=== PATIENT | female | born 1930 | race Caucasian/White ===

== ENCOUNTER 2018-04-29 12:29 | Emergency (ER) | payer MEDICARE ==
--- NOTE | 2018-04-29 14:53 | ED ---
Back Pain - HPI Summary HPI Summary: An 87 y/o female accompanied by family presents to [facility] with a chief complaint of right sided back pain for 1.5 weeks after she fell. At triage she rated her pain as a 5/10 in severity. She claims that she can walk. She denies taking any medication for her pain. - History of Current Complaint Chief Complaint: EDHipPelvisInjury Stated Complaint: PAIN IN RIGHT HIP PER Time Seen by Provider: 04/29/18 14:39 Hx Obtained From: Patient Onset/Duration: Sudden Onset, Lasting Weeks, Still Present Onset/Duration: Started Weeks Ago, Still Present Timing: Constant, Lasting Weeks Back Pain Location: Is Diffuse - right sided Severity Initially: Moderate Severity Currently: Moderate Pain Intensity: 5 Pain Scale Used: 0-10 Numeric Character: Unable to Describe Aggravating Symptom(s): Nothing Alleviating Symptom(s): Nothing Associated Signs And Symptoms: Negative: Fever - Allergies/Home Medications Allergies/Adverse Reactions: Allergies Allergy/AdvReac Type Severity Reaction Status Date / Time MS Ciprofloxacin Allergy Unknown GI Upset Verified 04/29/18 12:39 MS Sulfa Drugs Allergy Unknown Hives Verified 04/29/18 12:39 MS Simvastatin Allergy GI Upset Verified 04/29/18 12:39 PMH/Surg Hx/FS Hx/Imm Hx History: Reports: Other Problems/Disorders - Urine infections Opthamlomology History: Reports: Hx Contacts or Glasses Infectious Disease History: No Infectious Disease History: Denies: Traveled Outside the [place] in Last 30 Days - Family History Known Family History: Negative: Blood Disorder - Social History Lives: With Family Alcohol Use: None Substance Use Type: Reports: None Smoking Status (MU): Unknown if Ever Smoked Review of Systems Negative: Fever Positive: Myalgia - back pain All Other Systems Reviewed And Are Negative: Yes Physical Exam - Summary Physical Exam Summary: Appearance: The patient is well-nourished in no acute distress and in no acute pain. Skin: The skin is warm and dry and skin color reflects adequate perfusion. HEENT: The head is normocephalic and atraumatic. The pupils are equal and reactive. The conjunctivae are clear and without drainage. Nares are patent and without drainage. Mouth reveals moist mucous membranes and the throat is without erythema and exudate. The external ears are intact. The ear canals are patent and without drainage. The tympanic membranes are intact. Neck: The neck is supple with full range of motion and non-tender. There are no carotid bruits. There is no neck vein distension. Respiratory: Chest is non-tender. Lungs are clear to auscultation and breath sounds are symmetrical and equal. Cardiovascular: Heart is regular rate and rhythm. There is no murmur or rub auscultated. There is no peripheral edema and pulses are symmetrical and equal. Abdomen: The abdomen is soft and non-tender. There are normal bowel sounds heard in all four quadrants and there is no organomegaly palpated. Musculoskeletal: TTender in right sciatic area, Straight leg raise about 80 degrees, Non-tender over hip Neurovascularly intact. Extremities are non-tender with full range of motion. There is good capillary refill. There is no peripheral edema or calf tenderness elicited. Neurological: Patient is alert and oriented to person, place and time. The patient has symmetrical motor strength in all four extremities. Cranial nerves are grossly intact. Deep tendon reflexes are symmetrical and equal in all four extremities. Psychiatric: The patient has an appropriate affect and does not exhibit any anxiety or depression. Triage Information Reviewed: Yes Vital Signs On Initial Exam: Initial Vitals Temp Pulse Resp BP Pulse Ox 97.2 F 94 18 131/71 97 04/29/18 12:33 04/29/18 12:33 04/29/18 12:33 04/29/18 12:33 04/29/18 12:33 Vital Signs Reviewed: Yes Diagnostics - Vital Signs Vital Signs Temp Pulse Resp BP Pulse Ox 04/29/18 12:33 97.2 F 94 18 131/71 97 - Laboratory Lab Statement: Any lab studies that have been ordered have been reviewed, and results considered in the medical decision making process. - CT lumbar spine CT Interpretation Completed By: Radiologist Summary of CT Findings: 1. SCOLIOSIS. 2. ATHEROSCLEROSIS. 3. DEGENERATIVE DISC DISEASE AND OSTEOARTHRITIS OF THE CERVICAL SPINE DESCRIBED ABOVE. ED physician has reviewed this imaging report. Re-Evaluation - Re-Evaluation First Eval Re-Evaluation Time: 16:05 Change: Improved Comment: Discussed results. Patient is feeling better and ready for discharge. Back Pain Course/Dx - Course Course Of Treatment: Ms. Rivas presented with low back pain and sciatic tenderness several days after a fall. She was not in acute distress and hadn't taken anything for pain at this point except Tylenol. She was given ibuprofen here and a CT was obtained of her low back which showed significant degenerative disc disease. I recommended continuing ibuprofen and tramadol as a painkiller and muscle relaxants. She should expect improvement in a few days and follow-up with her PCP next week. - Diagnoses Provider Diagnoses: Sciatica Discharge - Sign-Out/Discharge Documenting (check all that apply): Patient Departure - DC Patient Received Moderate/Deep Sedation with Procedure: No - Discharge Plan Condition: Stable Disposition: HOME Prescriptions: traMADol TAB* [Ultram*] 25 mg PO Q6HR PRN #20 tab MDD 4 PRN Reason: Pain Patient Education Materials: Sciatica (ED) Referrals: Justin Qiules MD [Primary Care Provider] - (2-3 days) Additional Instructions: Recommend Ibuprofen Return to the ED if you experience any new or worsening symptoms. - Billing Disposition and Condition Condition: STABLE Disposition: Home - Attestation Statements Document Initiated by Scribe: Yes Documenting Scribe: Johnson Turner Provider For Whom Lawanda is Documenting (Include Credential): Sheldon Phillips MD Scribe Attestation: IJohnson, scribed for Sheldon Phillips MD on 04/29/18 at 1826. Scribe Documentation Reviewed: Yes Provider Attestation: The documentation as recorded by the Johnson kaur accurately reflects the service I personally performed and the decisions made by me, Sheldon Phillips MD Status of Scribe Document: Viewed
[2018-04-29] MEDS ORDERED: Ibuprofen TAB* 600 MG PO ONE (15:28)
[2018-04-29 17:00] VITALS: BP 151/72
== END 2018-04-29 16:40 | disposition home or self-care (01) ==
LOC: ED 12:29
DX: M54.30 Sciatica, unspecified side (principal); R50.9 Fever, unspecified; M54.9 Dorsalgia, unspecified; M50.30 Other cervical disc degeneration, unspecified cervical region; M41.9 Scoliosis, unspecified
CPT/HCPCS: 72131; 99282; A9270-GY

== ENCOUNTER 2019-01-11 08:11 | Inpatient (IN) | payer MEDICARE ==
[2019-01-11] MEDS ORDERED: NS 0.9% 1000 ML** 1,000 ML IV ONE ×4 (08:19→16:27)
--- NOTE | 2019-01-11 08:19 | ED ---
Neck Pain - HPI Summary HPI Summary: The patient is an 88 y/o F arriving by ambulance with a chief complaint of posterior neck pain onset this morning after a mechanical. Per EMS, the patient s called around 0715 this morning after she had fallen. She is now suffering from posterior neck pain and denies any headache, dizziness, chest pain, or shortness of breath. She rates her pain 4/10 in severity. She does not remember why she fell or if she had loss of consciousness. EMS reports blood glucose of 441, blood pressure of 97/61 mmHg, and O2 sats in the 95-100% range on room air. She has chronic neck problems. PMHx: DM (Metformtin), HLD, HTN. Current every day smoker, no EtOH, no substance use. Medications reviewed. Allergies noted. History is limited as patient is a poor historian and unable to recall events from todays event. - History of Current Complaint Stated Complaint: FALL PER EMS Hx Obtained From: Patient - unable to provide full history, EMS Hx From Patient Unobtainable Due To: Other - Level 5 Caveat as patient is a poor historian Onset/Duration Of Injury/Symptoms: Minutes - around 0715 (per EMS) Mechanism Of Injury: Other - fall Timing: Lasting Minutes Onset/Duration: Still Present Severity Currently: Moderate Pain Intensity: 4 Pain Scale Used: 0-10 Numeric Location: Discrete At: - posterior neck Associated Signs & Symptoms: Negative: Headache Related History: Previous Neck Injury - Allergies/Home Medications Allergies/Adverse Reactions: Allergies Allergy/AdvReac Type Severity Reaction Status Date / Time ciprofloxacin [From Cipro] Allergy GI Upset Verified 01/11/19 08:29 simvastatin Allergy GI Upset Verified 01/11/19 08:29 Sulfa (Sulfonamide Allergy Hives Verified 01/11/19 08:29 Antibiotics) Home Medications: Home Medications Acetaminop/Codeine 30 MG TAB* [Tylenol/Codeine 30 MG TAB*] 1 tab PO Q4H PRN MDD 6 tabs 01/11/19 [History Confirmed 01/11/19] Diazepam TAB(*) [Valium TAB(*)] 5 mg PO BID PRN MDD 10mg 01/11/19 [History Confirmed 01/11/19] Diphenoxylat/Atrop 2.5-0.025M* [Lomotil TAB*] 1 tab PO QID PRN 01/11/19 [ History Confirmed 01/11/19] Glyburide/Metformin HCl [Glyburide-Metformin 5-500 mg] 1 each PO BID 01/11/19 [ History Confirmed 01/11/19] Imipramine (NF) 50 mg PO BEDTIME 01/11/19 [History Confirmed 01/11/19] Lisinopril TAB* [Prinivil TAB*] 40 mg PO DAILY 01/11/19 [History Confirmed 01/11] Metoprolol Succinate XL TAB* [Toprol XL TAB*] 100 mg PO DAILY 01/11/19 [History Confirmed 01/11/19] Pravastatin (NF) [Pravachol (NF)] 40 mg PO QPM 01/11/19 [History Confirmed 01/11] PMH/Surg Hx/FS Hx/Imm Hx Endocrine/Hematology History: Reports: Hx Diabetes Cardiovascular History: Reports: Hx Hypercholesterolemia, Hx Hypertension History: Reports: Other Problems/Disorders - Urine infections Musculoskeletal History: Reports: Other Musculoskeletal History - neck problems Sensory History: Reports: Hx Contacts or Glasses Opthamlomology History: Reports: Hx Contacts or Glasses - Surgical History Surgical History: Unable to Obtain/Confirm Surgery Procedure, Year, and Place: patient is a poor historian Infectious Disease History: Unable to Obtain/Confirm - patient is a poor historian - Family History Known Family History: Positive: Unknown - patient is a poor historian Negative: Blood Disorder - Social History Alcohol Use: None Substance Use Type: Reports: None Hx Tobacco Use: Yes Smoking Status (MU): Current Every Day Smoker Type: Cigarettes Review of Systems Negative: Chest Pain Negative: Shortness Of Breath Positive: Other - posterior neck pain Neurological: Other - unsure of LOC; Negative: dizziness Negative: Headache All Other Systems Reviewed And Are Negative: No - Comments Additional Review of Systems Comments: Level 5 Caveat secondary to patient being a poor historian Physical Exam - Summary Physical Exam Summary: VITAL SIGNS: Reviewed. GENERAL: Patient is a well-developed and fragile elderly female who is lying comfortable in the stretcher. Patient is not in any acute respiratory distress. She appears unkempt. She is a poor historian. HEAD AND FACE: No signs of trauma. No ecchymosis, hematomas or skull depressions. No sinus tenderness. EYES: PERRLA, EOMI x 2, No injected conjunctiva, no nystagmus. EARS: Hearing grossly intact. Ear canals and tympanic membranes are within normal limits. MOUTH: Oropharynx within normal limits. NECK: Supple, trachea is midline, no adenopathy, no JVD, no carotid bruit. Some paraspinal tenderness in the C-spine. Neck with full ROM. CHEST: Symmetric, no tenderness at palpation. LUNGS: Some crackles in both lungs. No wheezing. CVS: Regular rate and rhythm, S1 and S2 present, no murmurs or gallops appreciated. ABDOMEN: Soft, non-tender. No signs of distention. No rebound, no guarding, and no masses palpated. Bowel sounds are normal. EXTREMITIES: FROM in all major joints, no edema, no cyanosis or clubbing. NEURO: Alert and oriented x 3. No acute neurological deficits. Speech is normal and follows commands. SKIN: Dry and warm. GCS: 15. Triage Information Reviewed: Yes Vital Signs Reviewed: Yes Completion Of Physical Exam Limited Due To: Level 5 - patient is a poor historian - Nidhi Coma Scale Best Eye Response: 4 - Spontaneous Best Motor Response: 6 - Obeys Commands Best Verbal Response: 5 - Oriented Coma Scale Total: 15 Procedures - Sedation Patient Received Moderate/Deep Sedation with Procedure: No Diagnostics - Laboratory Result Diagrams: 01/12/19 05:11 01/12/19 05:11 Lab Statement: Any lab studies that have been ordered have been reviewed, and results considered in the medical decision making process. - Radiology Chest X-Ray Radiology Interpretation Completed By: Radiologist Summary of Radiographic Findings: Impression: No active cardiopulmonary disease is noted. ED physician has reviewed this report. - CT Brain CT CT Interpretation Completed By: Radiologist Summary of CT Findings: Impression: 1. No evidence for acute intracranial abnormality. 2. Old right lacunar infarct. ED physician has reviewed this report. Cervical Spine CT CT Interpretation Completed By: Radiologist Summary of CT Findings: Impression: 1. No evidence for fracture. 2. Moderate cervical spondylosis as described. 3. Multiple thyroid nodules. Recommend a follow-up outpatient thyroid ultrasound for further evaluation. ED physician has reviewed this report. - EKG 1017 Cardiac Rate: NL - 88 BPM EKG Rhythm: Sinus Rhythm Summary of EKG Findings: EKG at 1017 reveals normal sinus rhythm at 88 BPM. Q waves in III and aVF. T-wave inversions V4-V6. No ST elevations. ED physician has reviewed and interpreted this EKG. Neck Course/Dx - Course Assessment/Plan: This patient is an 88-year-old female who presents to the emergency department via ambulance with a chief complaint of mechanical fall. However, she does not remember how she fell. She is complaining of slight neck pain. She is not consistent oriented. PMH: 1. Hypertension, 2. Dyslipidemia, 3. Diabetes, 4. Vertigo, 5. Anxiety, 6. Constipation. Blood test results: CBC shows WBCs of 14.1, hemoglobin of 13.5, hematocrit of 43, platelets of 179, absolute neutrophils of 12.5. CMP without any significant abnormality except for sodium of 134, carbon dioxide of 12, anion gap of 12, BUN of 42, creatinine of 2.29, glucose of 483, lactic acid of 2.7, calcium of 8.4, and magnesium of 1.6. Urinalysis negative for UTI. Chest x-ray impression: No active cardiopulmonary disease. Cervical spine CT impression: No evidence for fracture. Moderate cervical spondylolysis. Multiple thyroid nodules. Recommend a follow-up outpatient. Head CT impression: No evidence for acute intracranial abnormality. Old right lacunar infarct. In the ED course, the patient was given IV fluids for dehydration and hyperglycemia. The patient also was given insulin for hyperglycemia. The patient is still slightly hypotensive so I will continue IVF. No source of infection however since I will give Rocephin as broad- spectrum antibiotics. ABG: PH 7.28, PCO2 23, pO2 78, and O2 sat 97.7. I discussed my physical exam and test results with Dr. Anne from the hospitalist services, and she agrees to admit the patient to his services. - Diagnoses Provider Diagnoses: AMS (altered mental status), Hyperglycemia, Acute renal failure, Acidosis, Leukocytosis, Hypomagnesemia - Physician Notifications Discussed Care Of Patient With: Latasha Anne - hospitalist Time Discussed With Above Provider: 14:00 Instructed by Provider To: Other - I spoke with Dr. Anne concerning the patient's case, and she accepts her for admission. Discharge ED - Sign-Out/Discharge Documenting (check all that apply): Patient Departure - Patient accepted for admission by Dr. Anne. - Discharge Plan Condition: Stable Disposition: ADMITTED TO [facility] - Billing Disposition and Condition Condition: STABLE Disposition: Home - Attestation Statements Document Initiated by Scribe: Yes Documenting Scribe: Marielena Lyle Provider For Whom Lawanda is Documenting (Include Credential): Dr. Tobias Chicas MD Scribe Attestation: IMarielena scribed for Dr. Tobias Chicas MD on 01/12/19 at 1840. Scribe Documentation Reviewed: Yes Provider Attestation: The documentation as recorded by the Marielena kaur accurately reflects the service I personally performed and the decisions made by me, Dr. Tobias Chicas MD Status of Scribe Document: Viewed
[2019-01-11 08:59] LABS: Hematocrit 43 % (35-47); Hemoglobin 13.5 g/dL (12.0-16.0); Mean Corpuscular HGB Conc 32 g/dL (31-36); Mean Corpuscular Hemoglobin 31 pg (27-31); Mean Corpuscular Volume 98 fL (80-97); Mean Platelet Volume 8.1 fL (7.4-10.4); Platelet Count 179 10^3/uL (150-450); Red Blood Count 4.34 10^6 /uL (3.70-4.87); Red Cell Distribution Width 14 % (10-15); White Blood Count 14.1 10^3/uL (3.5-10.8)
[2019-01-11 09:06] LABS: INR 1.03 (0.82-1.09)
[2019-01-11 09:17] LABS: ALT 14 U/L (7-52); AST 14 U/L (13-39); Albumin 3.3 g/dL (3.2-5.2); Albumin/Globulin Ratio 1.4 (1-3); Alkaline Phosphatase 53 U/L (34-104); BUN/Creatinine Ratio 18.3 (8-20); Blood Urea Nitrogen 42 mg/dL (6-24); Calcium 8.4 mg/dL (8.6-10.3); Chloride 110 mmol/L (101-111); Creatine Kinase 42 U/L (10-223); EGFR African American 24.4 (>60); EGFR Non-African American 20.2 (>60); Globulin 2.4 g/dL (2-4); Glucose 483 mg/dL (70-100); Magnesium 1.6 mg/dL (1.9-2.7); Potassium 4.7 mmol/L (3.5-5.0); Sodium 134 mmol/L (135-145); Total Protein 5.7 g/dL (6.4-8.9)
[2019-01-11 09:18] LABS: ABS Lymphocytes 0.3 10^3/ul (1.0-4.8); ABS Monocytes 1.2 10^3/ul (0-0.8); ABS Neutrophils 12.5 10^3/ul (1.5-7.7); Eosinophil % 0.2 %; Nucleated Red Blood Cells % 0.2
[2019-01-11 09:21] LABS: Troponin I 0.01 ng/mL (<0.03)
[2019-01-11 09:22] LABS: Alcohol < 10 mg/dL (<10); Anion Gap 12 mmol/L (2-11); CO2 Carbon Dioxide 12 mmol/L (22-32); Salicylate < 2.50 mg/dL (<30)
[2019-01-11 09:35] LABS: TSH (Thyroid Stimulating Horm) 0.24 mcIU/mL (0.34-5.60)
[2019-01-11 09:43] LABS: Acetaminophen < 15 mcg/mL
[2019-01-11 09:48] LABS: Urine Appearance Cloudy; Urine Bilirubin Negative (Negative); Urine Blood Negative (Negative); Urine Color Yellow; Urine Glucose 1+(50 mg/dL) (Negative); Urine Ketones Negative (Negative); Urine Nitrite Negative (Negative); Urine Protein 2+(100 mg/dL) (Negative); Urine Specific Gravity 1.013 (1.010-1.030); Urine Urobilinogen Negative (Negative)
[2019-01-11] MEDS ORDERED: Magnesium Sulfate 1 GM IV* 1 GM/100 ML BAG IV ONE (09:49)
[2019-01-11 09:53] LABS: Urine Bacteria Absent (Absent); Urine Red Blood Cell Trace(0-2/hpf) (Absent); Urine Squamous Epithelial Cell Present (Absent); Urine White Blood Cell Trace(0-5/hpf) (Absent)
[2019-01-11] MEDS ORDERED: Insulin REGULAR(*) 1 UNITS UNIT IV PUSH ONE ×2 (10:18→11:56)
[2019-01-11] MEDS ORDERED: cefTRIAXone(*) 1 GM in NS 0.9% 50 ML* 50 ML IVPB ONE (12:31)
[2019-01-11 13:31] LABS: Albumin 2.8 g/dL (3.2-5.2); Calcium 7.5 mg/dL (8.6-10.3); Potassium 3.9 mmol/L (3.5-5.0); Total Bilirubin 0.4 mg/dL (0.2-1.0)
[2019-01-11 13:37] LABS: Albumin/Globulin Ratio 1.2 (1-3); BUN/Creatinine Ratio 19.9 (8-20); EGFR African American 27.6 (>60); EGFR Non-African American 22.8 (>60); Globulin 2.3 g/dL (2-4); Total Protein 5.1 g/dL (6.4-8.9)
[2019-01-11 15:55] LABS: Calcium 7.7 mg/dL (8.6-10.3); Magnesium 1.9 mg/dL (1.9-2.7); Potassium 4.3 mmol/L (3.5-5.0)
[2019-01-11 16:00] LABS: EGFR African American 29.4 (>60); EGFR Non-African American 24.3 (>60)
[2019-01-11] MEDS ORDERED: Meclizine TAB* 12.5 MG PO PRN (16:25)
[2019-01-11] MEDS ORDERED: Diphenoxylat/Atrop 2.5-0.025M* 1 TAB PO PRN (16:25)
[2019-01-11] MEDS ORDERED: Acetaminophen / Codeine* #3 (300 MG/30 MG) TAB PO PRN (16:25)
[2019-01-11] MEDS ORDERED: Diazepam TAB(*) 5 MG PO PRN (16:25)
[2019-01-11] MEDS ORDERED: Dextrose 50% VIAL 50 ml IV PUSH PRN (16:31)
[2019-01-11 17:14] LABS: Free T4 0.84 ng/dL (0.61-1.12)
[2019-01-11] MEDS: Albuterol/Ipratropium NEB.SOL* Albuterol 2.5 MG/Ipratropium 0.5 MG 3 ML INH SCH ×2 (19:10→23:05)
--- NOTE | 2019-01-11 20:04 | HP ---
CC: Justin Quiles MD * HISTORY AND PHYSICAL: DATE OF ADMISSION: 01/11/19 PRIMARY CARE PROVIDER: Justin Quiles MD. ATTENDING PHYSICIAN: Latasha Anne MD * (dictated by VANDANA Franklin). CHIEF COMPLAINT: 1. Fall. 2. Neck pain. HISTORY OF PRESENT ILLNESS: Ms. Rivas is an 88-year-old female with past medical history of hypertension, hyperlipidemia, diabetes mellitus and vertigo, who presented to the ER today after sustaining a mechanical fall that resulted in neck pain. She was seen in the ER accompanied by her and niece. She is mostly unable to recall any of the events that occurred and does not know why she is in the hospital. Her states that she was getting up from the couch going to the bathroom and she fell in the bathroom. He states that she "slipped." He states that she typically walks with a cane or walker and that she walks infrequently. He states that she spends most of her time lying down and gets up only to use the bathroom or eat. When she walks, she has a shuffling gait. The patient again does not remember the fall. She denies pain in the neck. She complains of occasional dizziness, lightheadedness and a mild headache. She also complains of blurred vision and notes that she just had LASIK surgery on both eyes within the last 2 weeks. When asked question, she looks to her for answers. For instance, I asked the patient if she had cough or fever and she looks to her and she states "I don't know. Have I been coughing recently?" Her states that she has not had a cough recently. He does note that she has had increased frequency of urination and has complained of mild dysuria although the patient denies dysuria. The patient complains of diarrhea and notes that she has had this for "years." She notes that she has had diarrhea for the last 3 days recently and notes that these have been bloody, loose, watery bowel movements. She does eat and drink although she feels she does not drink enough fluids. In the ER, the patient received a full workup. Laboratory data revealed a leukocytosis. CMP revealed an anion gap that resolved with IV fluids. Her creatinine was elevated and slowly decreased to 1.95 with IV fluids. She had a lactic acidosis of 3.7 at admission. She was given 3 L of IV fluids, which decreased her lactic acidosis to 2.3. She had a magnesium of 1.6 and was given 1 g of magnesium. TSH was low at 0.24. The patient was also noted to have a glucose of 483. She was given 8 units insulin IV piggyback x2 as well as again 3 L of normal saline. Her current glucose is 308. She was given ceftriaxone 1 g in the ER. Hospitalist team was asked to evaluate the patient for admission. PAST MEDICAL HISTORY: 1. Hypertension. 2. Hyperlipidemia. 3. Diabetes mellitus. 4. Vertigo. 5. Anxiety. PAST SURGICAL HISTORY: Breast lumpectomy. HOME MEDICATIONS: 1. Acetaminophen/codeine 30 mg 1 tab p.o. q.4 hours p.r.n., MDD 6 tabs. 2. Amlodipine 10 mg p.o. daily. 3. Diazepam 5 mg p.o. b.i.d. p.r.n., MDD 10. 4. Lomotil 1 tab p.o. q.i.d. p.r.n. diarrhea. 5. Glyburide/metformin 5/500 one tab p.o. b.i.d. 6. Imipramine 50 mg p.o. at bedtime. 7. Lisinopril 40 mg p.o. daily. 8. Meclizine 25 mg p.o. t.i.d. p.r.n. vertigo. 9. Metoprolol succinate XL 100 mg p.o. daily. 10. Pravastatin 40 mg p.o. at bedtime. DRUG ALLERGIES: CIPRO, GI upset. SIMVASTATIN, GI upset. SULFA, hives. FAMILY HISTORY: The patient had 2 brothers with NC, 1 sister with diabetes mellitus. Father had diabetes mellitus. Mother was healthy. She does not know anything about her grandparents. She denies history of CVA or cancer. SOCIAL HISTORY: The patient has smoked one-half to one pack of cigarettes per day for the last approximately 70 years, she continues to smoke. She does not use alcohol, she quit 30 years ago. 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 She lives with her . They have no children. In the event that she is unable to make her own medical decision, she has appointed her niece and healthcare proxy, Renee Perry to be her surrogate decision maker. REVIEW OF SYSTEMS: A 14-point review of systems has been performed and all the pertinent positives and negatives are in the HPI. All other systems are negative. PHYSICAL EXAMINATION GENERAL: Ms. Rivas is a well-developed, well-nourished, overweight, white woman , who was sitting up in bed. She appears mildly unkempt. There is a malodorous smell in the room. She is breathing comfortably on room air and appears to be in no acute distress. VITAL SIGNS: Temperature 96.9 temporal, heart rate 90, respiratory rate 18, oxygen saturation 95% on room air, blood pressure 115/61. HEENT: PERRL. EOMI. Nonicteric sclerae. Hearing: The patient is hard of hearing. Oral: She has poor dentition. Oral mucous membranes are very dry. Tongue is at midline. There are no lesions in the posterior pharynx. The palate elevates symmetrically. NECK: Nontender to palpation with full range of motion. Thyroid is not palpable. PULMONARY: Symmetrical chest expansion without use of accessory muscles. There is diffuse end expiratory wheezing throughout bilateral lung webster. No rhonchi or rales. CARDIOVASCULAR: Regular rate and rhythm with S1, S2 present without murmurs, rubs, clicks, or gallops. There is no JVD or peripheral edema. ABDOMEN: Flat. Bowel sounds in all quadrants, soft, nontender to palpation. MUSCULOSKELETAL: Full range of motion without pain or deformities. NEURO: The patient is awake. She is alert and oriented to self and location. Does not know date. Muscle strength 5/5 bilaterally in the upper and lower extremities. Full range of motion without pain or deformities. DIAGNOSTIC STUDIES/LAB DATA: WBCs 14.1. Chloride 113, carbon dioxide 13, BUN 41, creatinine 1.95, BUN/creatinine 21, glucose 308, lactic acid 3.7 to 2.3, TSH 0.24, ammonia 26. Stool testing negative for C. diff, positive for lactoferrin. E. coli culture and Shiga toxin pending. 1. Chest x-ray. Impression: No active cardiopulmonary disease is noted. 2. CT brain without. Impression: No evidence for acute intracranial abnormality. Old right lacunar infarct. 3. CT C-spine. Impression: No evidence for fracture. Moderate cervical spondylosis as described. Multiple thyroid nodules. Recommend a followup outpatient thyroid ultrasound for further evaluation. ASSESSMENT AND PLAN: Ms. Rivas is an 88-year-old female with past medical history of hypertension, hyperlipidemia, diabetes, and vertigo who presented to the ER after a fall with complaints of neck pain and was found to have a negative CT of the head and neck and resolution of neck pain. Meanwhile, she was noted to have diffuse wheezing on pulmonary exam, a lactic acidosis, reported hematochezia and diarrhea, which was sent for testing, leukocytosis, and hyperglycemia. The patient will be admitted for: 1. Fall. The patient presents status post mechanical fall with neck pain, which has since resolved. CT of the head and neck were without acute abnormality. Her family reports a baseline of shuffling gait and use of cane or walker. She appears to be unsteady at baseline and appears to have some deconditioning due to decreased activity. PT and OT have been ordered to evaluate the patient's ambulation. 2. Probable chronic obstructive pulmonary disease exacerbation. The patient has no history of chronic obstructive pulmonary disease, but does have approximately 70- pack year history of tobacco abuse. She continues to smoke now. She will be started on DuoNeb. She will also be started on IV methylprednisolone. She would benefit from outpatient workup for chronic obstructive pulmonary disease. 3. Lactic acidosis. The patient presents with a lactic acidosis that does not appear to be related to infection. Her urinalysis is clear although she does have some mild dysuria and increased frequency. There is no noted cardiopulmonary disease on chest x-ray. She does have diarrhea, which she reports she has had for years and she denies abdominal pain, nausea, and vomiting. I suspect that her lactic acidosis is related to hyperglycemia versus chronic obstructive pulmonary disease exacerbation. She has 3 L of IV fluid, and her lactic acid has decreased from 3.7 to 2.3. She will receive another 1 L bolus of fluid with repeat lactic acid. She will also be placed on maintenance fluids. We will continue to monitor for signs and symptoms of infection as this cannot be excluded due to the patient being a poor historian. 4. Leukocytosis. The patient has leukocytosis. Her niece who is at bedside and is the patient's healthcare proxy and brings her to her appointments, reports that this is "normal" for her and that she always has some leukocytosis although she is unable to give a numeric value. She does not appear to have an infection. UA is negative. Chest x-ray is negative. She does report diarrhea , which is chronic for her. She denies abdominal pain, nausea and vomiting. We will request records for recent lab values and medical records to further evaluate this. 5. Diabetes mellitus. The patient is on glyburide/metformin 5/500 b.i.d. She presents to the ER with a glucose of 438. Judging by this, it appears her diabetes is uncontrolled, but we will order a hemoglobin A1c to further evaluate that. The patient will be placed on lispro sliding scale with fingersticks a.c. She would benefit from tighter glycemic control and may require additional medications or even insulin. 6. Elevated creatinine. The patient has creatinine that has decreased with administration of IV fluids. It is unclear if she has acute kidney injury on chronic kidney injury or if this is simply acute kidney injury due to dehydration likely from diarrhea. We will continue to hydrate the patient and request records from Dr. Quiles on recent lab values. 7. Low TSH with thyroid nodules. The patient's TSH was low at 0.[address] of the neck reveals thyroid nodules. Recommendations are for an ultrasound of the thyroid. We will order a free T4 to evaluate urgent need for thyroid ultrasound. If free T4 is within normal limits, this study is likely non urgent and it could be done outpatient. 8. Hypertension. Continue amlodipine, lisinopril, and metoprolol. 9. Hyperlipidemia. Continue statin. 10. Vertigo. Continue meclizine. 11. Anxiety. Continue diazepam. 12. Tobacco abuse. The patient has a 70-year tobacco history. We will order a patch. 13. DVT prophylaxis. According to DVT Risk Assessment, the patient scores 4, placing her at high risk. She will be started on heparin. 14. Code status: Currently, the patient does not appear to be competent to make decisions about her code status. With that being said, she will be full code for the time being. Her niece states that she has paperwork regarding the patient's wishes and will bring this with her at her next visit. TIME SPENT: Approximately 70 minutes was spent on this admission, greater than half that time was spent [id number] with the patient and her family members, obtaining history, performing physical, and reviewing the plan of care. The case has been reviewed with my attending Dr. Anne, who is in agreement with the plan of care. LYLE MANCILLA, VANDANA [id number]/[facility] #: [id number] MICHEAL
[2019-01-11] MEDS: NS 0.9% 1000 ML** 1,000 ML IV SCH (20:21)
[2019-01-11] MEDS: CMCS:Imipramine (NF) 25 MG TAB PO SCH (20:23)
[2019-01-11] MEDS: methylPREDNISolone 125 MG* 2 ML VIAL IV SCH (20:23)
[2019-01-11] MEDS: Atorvastatin* 10 MG TAB PO SCH (20:24)
[2019-01-11] MEDS: Heparin VIAL(*) 5000 UNITS/ML VIAL (FIVE THOUSAND) SUBCUT SCH (20:25)
[2019-01-11] MEDS ORDERED: Albuterol/Ipratropium NEB.SOL* Albuterol 2.5 MG/Ipratropium 0.5 MG 3 ML INH PRN (23:05)
[2019-01-12] MEDS: methylPREDNISolone 125 MG* 2 ML VIAL IV SCH ×3 (05:25→22:39)
[2019-01-12] MEDS: Heparin VIAL(*) 5000 UNITS/ML VIAL (FIVE THOUSAND) SUBCUT SCH ×3 (05:25→22:35)
[2019-01-12 05:52] LABS: ABS Lymphocytes 0.6 10^3/ul (1.0-4.8); ABS Monocytes 0.3 10^3/ul (0-0.8); ABS Neutrophils 12.9 10^3/ul (1.5-7.7); Hematocrit 33 % (35-47); Hemoglobin 10.8 g/dL (12.0-16.0); Lymphocyte % 4.1 %; Mean Corpuscular HGB Conc 33 g/dL (31-36); Mean Corpuscular Hemoglobin 31 pg (27-31); Mean Corpuscular Volume 95 fL (80-97); Mean Platelet Volume 7.8 fL (7.4-10.4); Platelet Count 157 10^3/uL (150-450); Red Blood Count 3.46 10^6 /uL (3.70-4.87); Red Cell Distribution Width 14 % (10-15); White Blood Count 13.9 10^3/uL (3.5-10.8)
[2019-01-12 06:10] LABS: BUN/Creatinine Ratio 24.3 (8-20); Calcium 7.3 mg/dL (8.6-10.3); EGFR African American 40.5 (>60); EGFR Non-African American 33.4 (>60); Potassium 4.6 mmol/L (3.5-5.0)
[2019-01-12] MEDS: NS 0.9% 1000 ML** 1,000 ML IV SCH ×2 (08:28→19:32)
[2019-01-12] MEDS: Nicotine PATCH 21 MG/24 HR* PATCH TRANSDERM SCH (08:32)
[2019-01-12] MEDS: Insulin LISPRO* 1 UNITS UNIT SUBCUT SCH ×4 (08:32→22:34)
[2019-01-12] MEDS: Metoprolol Succinate XL TAB* 100 MG PO SCH (08:35)
[2019-01-12] MEDS: Lisinopril TAB* 10 MG PO SCH (08:35)
[2019-01-12] MEDS: amLODIPine TAB* 5 MG PO SCH (08:35)
[2019-01-12] MEDS: Insulin GLARGINE(*) 1 UNITS UNIT SUBCUT SCH (10:16)
--- NOTE | 2019-01-12 15:36 | PN ---
Subjective Date of Service: 01/12/19 Interval History: Patient seen and examined. Pleasant, forgetful, no overnight events. Denies SOB , no chest pain, no abdominal pain, no fever or chills. States she is feeling well. Remembers she thinks she had diarrhea before she came to the hospital but has not had diarrhea this morning. No further complaints. Objective Active Medications: Acetaminophen (Tylenol Tab*) 650 mg PO Q4H PRN PRN Reason: mild to moderate pain Acetaminophen/Codeine Phosphate (Tylenol/Codeine 30 Mg Tab*) 1 tab PO Q4H PRN PRN Reason: PAIN - MODERATE Albuterol/Ipratropium (Duoneb (Albuterol 2.5 Mg/Ipratropium 0.5 Mg)) 1 neb INH [id number] AWAKE PRN PRN Reason: SOB/WHEEZING Amlodipine Besylate (Norvasc Tab*) 10 mg PO DAILY [facility] Last Admin: 01/12/19 08:35 Dose: 10 mg Atorvastatin Calcium (Lipitor*) 10 mg PO QPM [facility]; Protocol Last Admin: 01/11/19 20:24 Dose: 10 mg Dextrose (Dextrose 50% Vial 50 Ml*) 25 ml IV PUSH .FOR FS < 60 - SS PRN PRN Reason: FS < 60 Diazepam (Valium Tab(*)) 5 mg PO BID PRN PRN Reason: ANXIETY Diphenoxylate HCl/Atropine (Lomotil Tab*) 1 tab PO QID PRN PRN Reason: DIARRHEA Heparin Sodium (Porcine) (Heparin Vial(*)) 5,000 units SUBCUT Q8HR [facility] Last Admin: 01/12/19 15:14 Dose: 5,000 units Sodium Chloride (Ns 0.9% 1000 Ml) 1,000 mls @ 100 mls/hr IV PER RATE [facility] Last Admin: 01/12/19 08:28 Dose: 100 mls/hr Imipramine HCl (Imipramine (Nf)) 50 mg PO BEDTIME [facility] Last Admin: 01/11/19 20:23 Dose: 50 mg Insulin Glargine (Lantus(*)) 15 units SUBCUT Q24H [facility] Last Admin: 01/12/19 10:16 Dose: 15 units Insulin Human Lispro (Humalog*) 0 units SUBCUT AC [facility]; Protocol Last Admin: 01/12/19 12:37 Dose: 2 units Lisinopril (Prinivil Tab*) 40 mg PO DAILY [facility] Last Admin: 01/12/19 08:35 Dose: 40 mg Meclizine HCl (Antivert Tab*) 25 mg PO TID PRN PRN Reason: DIZZINESS Methylprednisolone Sodium Succinate (Solu-Medrol 125mg *) 60 mg IV Q8HR [facility] Last Admin: 01/12/19 15:14 Dose: 60 mg Metoprolol Succinate (Toprol Xl Tab*) 100 mg PO DAILY [facility] Last Admin: 01/12/19 08:35 Dose: 100 mg Nicotine (Nicotine Patch 21 Mg/24 Hr*) 1 patch TRANSDERM DAILY@0800 [facility] Last Admin: 01/12/19 08:32 Dose: 1 patch Pharmacy Profile Note (Nicotine Patch Removal Note*) 1 note PATCH OFF 2100 [facility] Vital Signs - 8 hr 01/12/19 01/12/19 08:04 12:00 Temperature 98.1 F 97.5 F Pulse Rate 92 78 Respiratory 18 17 Rate Blood Pressure 123/45 113/45 (mmHg) O2 Sat by Pulse 99 100 Oximetry Oxygen Devices in Use Now: None Appearance: alert, NAD Eyes: No Scleral Icterus, PERRLA Ears/Nose/Mouth/Throat: Mucous Membranes Moist Neck: NL Appearance and Movements; NL JVP Respiratory: Symmetrical Chest Expansion and Respiratory Effort, Clear to Auscultation Cardiovascular: NL Sounds; No Murmurs; No JVD, RRR Abdominal: NL Sounds; No Tenderness; No Distention Extremities: No Edema, No Clubbing, Cyanosis Skin: No Rash or Ulcers Neurological: - - alert to person Result Diagrams: 01/12/19 05:11 01/12/19 05:11 Microbiology and Other Data: Microbiology 01/11/19 12:54 Aerobic Blood Culture - Preliminary Blood Venous Strep Mitis/Strep Oralis 01/11/19 12:53 Aerobic Blood Culture - Preliminary Blood Venous No Growth Day 1 Anaerobic Blood Culture - Preliminary No Growth Day 1 01/11/19 09:35 Urine Culture - Final Urine No Growth (<1,000 CFU/mL) 01/11/19 14:26 Stool Occult Blood (CASEY) - Final Stool 01/11/19 14:26 Stool Gross Appearance - Final Stool C. difficile DNA Amplification - Final 027 Presumptive NEGATIVE Toxigenic C.diff NEGATIVE Stool Lactoferrin - Final Diagnostic Imaging: Patient Name: GEORGIE JACKSON Medical Record#: [id number] Ordering Physician: Tobias Chicas MD Acct.#: [id number] : 1930 Age: 88 Sex: F Location: EMERGENCY DEPARTMENT Exam Date: 01/11/19819 ADM Status: REG ER Order Information: CHEST AP OR PORT Accession Number: [id number] CPT: 63237 Indication: Fall. Single frontal view of the chest performed at 0945 hours was reviewed. Comparison is made with previous exam dated April 09, 2004. No mediastinal shift is noted. Heart is of normal size and configuration. Lung webster appear clear. IMPRESSION: NO ACTIVE CARDIOPULMONARY DISEASE IS NOTED. Assess/Plan/Problems-Billing Assessment: This is an 88 year old female with hx of HTN, DM, and mild cognitive deficit that presents to ED after fall at home. - Patient Problems (1) Fall Comment: - With neck pain, CT cspine with no findings - 2/2 Uncontrolled hyperglycemia? Weakness? - PT eval (2) COPD with exacerbation Code(s): J44.1 - CHRONIC OBSTRUCTIVE PULMONARY DISEASE W (ACUTE) EXACERBATION SNOMED Code(s): 820543528 Comment: - Long hx of tobacco abuse - No consiolidation on chest xray - Continue azithro/cftxn, nebs and solumedrol (3) Hyperglycemia Code(s): R73.9 - HYPERGLYCEMIA, UNSPECIFIED SNOMED Code(s): 88410368 Comment: - Uncontrolled, A1c >10 - Placed on lispro SS - Lantus added today - Receieved hydration in ED - Accuchecks ACHS (4) Lactic acidosis due to diabetes mellitus Code(s): E11.10 - TYPE 2 DIABETES MELLITUS WITH KETOACIDOSIS WITHOUT COMA SNOMED Code(s): 012714141 Comment: - No obvious source of infection, afebrile, no fever, no hypotension - Strep mitis/oralis in 1 bottle from blood cultures, likely contaminant but will continue ceftriaxone for now. If she remains afebrile and rest of blood cultures are negative, will discontinue - Elevated WBC count which family says is her baseline for years with no etiology - Likely elevated in the presence of uncontrolled diabetes, normalized after IVF and glycemic control (5) Hypertension Code(s): I10 - ESSENTIAL (PRIMARY) HYPERTENSION SNOMED Code(s): 43538520 Comment: - Stable on amlodipine and lisinopril (6) Diarrhea Code(s): R19.7 - DIARRHEA, UNSPECIFIED SNOMED Code(s): 86777906 Comment: - No loose stools today - Cdiff negative - Pending stool culture - Fecal lactoferrin positive, will obtain CT abdomen and pelvis (7) CKD (chronic kidney disease) Code(s): N18.9 - CHRONIC KIDNEY DISEASE, UNSPECIFIED SNOMED Code(s): 702850666 Comment: - Stage 3/4 - Some improvement in creatinine after IVF - likely 2/2 uncontrolled diabetes - Avoid nephrotoxic agents (8) DVT prophylaxis Code(s): Z29.9 - ENCOUNTER FOR PROPHYLACTIC MEASURES, UNSPECIFIED SNOMED Code( s): 386885932 Comment: - HSQ (9) Full code status Code(s): Z78.9 - OTHER SPECIFIED HEALTH STATUS SNOMED Code(s): 655063822 Status and Disposition: Inpatient, dispo to home when medically stable.
[2019-01-12] MEDS: Atorvastatin* 10 MG TAB PO SCH (18:17)
[2019-01-12] MEDS: CMCS:Imipramine (NF) 25 MG TAB PO SCH (22:35)
[2019-01-12] MEDS: Nicotine Patch Removal NOTE PATCH OFF SCH (22:39)
[2019-01-13] MEDS: methylPREDNISolone 125 MG* 2 ML VIAL IV SCH (05:17)
[2019-01-13] MEDS: Heparin VIAL(*) 5000 UNITS/ML VIAL (FIVE THOUSAND) SUBCUT SCH ×3 (05:18→22:04)
[2019-01-13] MEDS: amLODIPine TAB* 5 MG PO SCH (08:46)
[2019-01-13] MEDS: Lisinopril TAB* 10 MG PO SCH (08:46)
[2019-01-13] MEDS: Metoprolol Succinate XL TAB* 100 MG PO SCH (08:46)
[2019-01-13] MEDS: Insulin LISPRO* 1 UNITS UNIT SUBCUT SCH ×4 (08:47→21:57)
[2019-01-13] MEDS: Nicotine PATCH 21 MG/24 HR* PATCH TRANSDERM SCH (08:51)
[2019-01-13] MEDS: NS 0.9% 1000 ML** 1,000 ML IV SCH ×2 (09:14→22:23)
[2019-01-13 10:11] LABS: ABS Lymphocytes 0.9 10^3/ul (1.0-4.8); ABS Monocytes 0.5 10^3/ul (0-0.8); ABS Neutrophils 14.4 10^3/ul (1.5-7.7); Hematocrit 40 % (35-47); Hemoglobin 13.5 g/dL (12.0-16.0); Lymphocyte % 5.8 %; Mean Corpuscular HGB Conc 34 g/dL (31-36); Mean Corpuscular Hemoglobin 32 pg (27-31); Mean Corpuscular Volume 94 fL (80-97); Nucleated Red Blood Cells % 0.1; Platelet Count 221 10^3/uL (150-450); Red Blood Count 4.26 10^6 /uL (3.70-4.87); Red Cell Distribution Width 14 % (10-15); White Blood Count 15.9 10^3/uL (3.5-10.8)
[2019-01-13 10:23] LABS: BUN/Creatinine Ratio 24.2 (8-20); EGFR African American 51.5 (>60); EGFR Non-African American 42.6 (>60); Potassium 4.2 mmol/L (3.5-5.0)
[2019-01-13] MEDS: Insulin GLARGINE(*) 1 UNITS UNIT SUBCUT SCH (10:31)
[2019-01-13] MEDS ORDERED: Insulin LISPRO* 1 UNITS UNIT SUBCUT ONE (12:57)
[2019-01-13] MEDS ORDERED: Insulin GLARGINE(*) 1 UNITS UNIT SUBCUT ONE (12:58)
[2019-01-13] MEDS: cefTRIAXone(*) 1 GM in NS 0.9% 50 ML* 50 ML IVPB SCH (16:28)
--- NOTE | 2019-01-13 16:52 | ECHO ---
*[facility]* [place] [address] Fax #: [phone] Transthoracic Echocardiogram Patient: Elise Rivas : 1930 Study Date: 01/13/2019 Age: 88 Gender: F HR: 72 bpm Height: 68 in /172.7 cm BSA: 1.79 m^2 Weight: 146.7 lb /66.7 kg BMI: 22.4 kg/m^2 *Associate Property Manager: * Lois Rausch [facility] *Referring Physician: * Cortney Fabian *Reading Physician: * Carlton Chu MD Indications: Bacteremia. History: Chronic obstructive pulmonary disease. Risk factors: Current tobacco use. Hypertension. Diabetes mellitus. Conclusions Summary: - Left ventricle: The cavity size is normal. Wall thickness is mildly increased. Systolic function is normal. The estimated ejection fraction is 55-60%. Wall motion is normal; there are no regional wall motion abnormalities. Doppler parameters are consistent with abnormal left ventricular relaxation (grade 1 diastolic dysfunction). - Right atrium: The atrium is mildly dilated. - Mitral valve: There is mild regurgitation. - No intra-cardiac vegetation seen on this transthoracic echocardiogram. - There is no prior echocardiogram available to compare with at this time. Study data: Transthoracic echocardiogram. Procedure: Transthoracic echocardiography was performed. Image quality was fair. Complete 2D, spectral Doppler, and color flow Doppler. Location: Bedside. Patient status: Inpatient. Patient room number: 415. Rhythm: Normal sinus rhythm. Findings Left ventricle: The cavity size is normal. Wall thickness is mildly increased. Systolic function is normal. The estimated ejection fraction is 55-60%. Wall motion is normal; there are no regional wall motion abnormalities. Doppler parameters are consistent with abnormal left ventricular relaxation (grade 1 diastolic dysfunction). Right ventricle: The cavity size is normal. Systolic function is normal. Left atrium: The atrium is at the upper limits of normal in size. Right atrium: The atrium is mildly dilated. Mitral valve: The Mitral valve annulus appears calcified. The leaflets are mildly thickened. There is no evidence of a vegetation. There is no evidence of stenosis. There is mild regurgitation. Aortic valve: Not well visualized. The valve is trileaflet. The leaflets are mildly thickened. There is no evidence of a vegetation. There is no evidence of stenosis. There is no significant regurgitation. Tricuspid valve: The leaflets are normal thickness. There is no evidence of a vegetation. There is trace regurgitation. Pulmonic valve: The leaflets are normal thickness. There is no evidence of a vegetation. There is no evidence of stenosis. There is trace regurgitation. Aorta: The aortic root appears normal. The aortic arch appears normal. Pericardium: There is no significant pericardial effusion. Pulmonary arteries: The main pulmonary artery is normal-sized. Systolic pressure is at the upper limits of normal. Systemic veins: Inferior vena cava: The vessel is normal in size. There is (>= 50%) respiratory change in the IVC dimension. Measurements Left ventricle Value Ref Mitral valve Value Ref ACACIA, LAX 4.1 cm 3.8 - 5.2 Peak E 0.95 m/sec ----- ESD, LAX 2.7 cm 2.2 - 3.5 Peak A 1.27 m/sec ----- FS, LAX 35 % 27 - 45 Decel time 156 ms ----- PW, ED, LAX (H) 1.0 cm 0.6 - 0.9 PHT 74 ms ----- EF 65 % 54 - 74 Mean grad, D 2.0 mm Hg ----- E', lat lucius, TDI (L) 6.0 cm/sec >=10.0 Peak grad, D 6.0 mm Hg --- -- E/e', lat lucius, 16 Peak E/A ratio 0.7 ----- TDI E', med lucius, TDI 7.0 cm/sec >=7.0 Pulmonic valve Value Ref E/e', med lucius, 14 Peak v, S 0.94 m/sec ----- TDI Peak grad, S 3.0 mm Hg ----- E', avg, TDI 6.5 cm/sec E/e', avg, TDI (H) 15 <=14 Tricuspid valve Value Ref TR peak v (H) 2.9 m/sec <=2.8 LVOT Value Ref Peak RV-RA grad, S 34 mm Hg ----- Peak nagi, S 0.89 m/sec Mean grad, S 2 mm Hg Aortic root Value Ref Root diam 2.8 cm <4.0 Ventricular septum Value Ref IVS, ED (H) 1.2 cm 0.6 - 0.9 Ascending aorta Value Ref AAo AP diam, S 2.6 cm ----- Right ventricle Value Ref ACACIA, LAX 2.5 cm Aortic arch Value Ref ACACIA minor ax, A4C 3.2 cm 1.9 - 3.5 Arch diam 2.5 cm ----- mid Pressure, S 37 mm Hg Decending aorta Value Ref Kendra peak nagi 0.49 m/sec ----- Left atrium Value Ref AP dim, ES (H) 4.20 cm 2.70 - Pulmonary artery Value Ref 3.80 Pressure, S 34.0 mm Hg ----- ML dim, A4C 3.9 cm SI dim, A4C 5.1 cm Inferior vena cava Value Ref Vol/bsa, ES, A/L 34 ml/m^2 16 - 34 Diam 2.0 cm ----- Right atrium Value Ref Pulmonary veins Value Ref SI dim, ES 4.5 cm 3.4 - 5.3 Peak v, S 0.64 m/sec ----- ML dim, ES, A4C (H) 4.6 cm 2.6 - 4.4 Peak v, D 0.41 m/sec ----- Estimated RAP 3 mm Hg Peak S/D ratio 1.6 ----- A rev duration 103 ms ----- Aortic valve Value Ref Lucius diam, ED 2.0 cm Peak v, S 1.31 m/sec VTI, S 33.1 cm Mean grad, S 4.0 mm Hg Peak grad, S 7.0 mm Hg Legend: (L) and (H) gloria values outside specified reference range. Prepared and electronically signed by Carlton Chu MD 01/13/2019 16:51
--- NOTE | 2019-01-13 17:13 | PN ---
Subjective Date of Service: 01/13/19 Interval History: Patient seen and examined. No acute overnight events. Remains hyperglycemic. No fever, no chills, no chest pain, no SOB, no diarrhea. at bedside. States he is concerned about his 's sugar, as she is not reliable enough to take insulin and he is legally blind and cannot assist with insulin administration if that is what she needs. Objective Active Medications: Acetaminophen (Tylenol Tab*) 650 mg PO Q4H PRN PRN Reason: mild to moderate pain Acetaminophen/Codeine Phosphate (Tylenol/Codeine 30 Mg Tab*) 1 tab PO Q4H PRN PRN Reason: PAIN - MODERATE Albuterol/Ipratropium (Duoneb (Albuterol 2.5 Mg/Ipratropium 0.5 Mg)) 1 neb INH [id number] AWAKE PRN PRN Reason: SOB/WHEEZING Amlodipine Besylate (Norvasc Tab*) 10 mg PO DAILY [facility] Last Admin: 01/13/19 08:46 Dose: 10 mg Atorvastatin Calcium (Lipitor*) 10 mg PO QPM [facility]; Protocol Last Admin: 01/12/19 18:17 Dose: 10 mg Dextrose (Dextrose 50% Vial 50 Ml*) 25 ml IV PUSH .FOR FS < 60 - SS PRN PRN Reason: FS < 60 Diazepam (Valium Tab(*)) 5 mg PO BID PRN PRN Reason: ANXIETY Diphenoxylate HCl/Atropine (Lomotil Tab*) 1 tab PO QID PRN PRN Reason: DIARRHEA Heparin Sodium (Porcine) (Heparin Vial(*)) 5,000 units SUBCUT Q8HR [facility] Last Admin: 01/13/19 13:12 Dose: 5,000 units Sodium Chloride (Ns 0.9% 1000 Ml) 1,000 mls @ 100 mls/hr IV PER RATE [facility] Last Admin: 01/13/19 09:14 Dose: 100 mls/hr Ceftriaxone Sodium 1 gm/ (Sodium Chloride) 50 mls @ 100 mls/hr IVPB Q24H [facility] Last Admin: 01/13/19 16:28 Dose: 100 mls/hr Imipramine HCl (Imipramine (Nf)) 50 mg PO BEDTIME [facility] Last Admin: 01/12/19 22:35 Dose: 50 mg Insulin Glargine (Lantus(*)) 20 units SUBCUT Q24H [facility] Insulin Human Lispro (Humalog*) 0 units SUBCUT ACHS [facility]; Protocol Last Admin: 01/13/19 13:01 Dose: Not Given Lisinopril (Prinivil Tab*) 40 mg PO DAILY [facility] Last Admin: 01/13/19 08:46 Dose: 40 mg Meclizine HCl (Antivert Tab*) 25 mg PO TID PRN PRN Reason: DIZZINESS Metoprolol Succinate (Toprol Xl Tab*) 100 mg PO DAILY [facility] Last Admin: 01/13/19 08:46 Dose: 100 mg Nicotine (Nicotine Patch 21 Mg/24 Hr*) 1 patch TRANSDERM DAILY@0800 [facility] Last Admin: 01/13/19 08:51 Dose: 1 patch Pharmacy Profile Note (Nicotine Patch Removal Note*) 1 note PATCH OFF 2100 [facility] Last Admin: 01/12/19 22:39 Dose: 1 note Vital Signs - 8 hr 01/13/19 11:54 Temperature 97.9 F Pulse Rate 81 Respiratory 19 Rate Blood Pressure 130/58 (mmHg) O2 Sat by Pulse 100 Oximetry Oxygen Devices in Use Now: None Appearance: alert, NAD Eyes: No Scleral Icterus, PERRLA Ears/Nose/Mouth/Throat: Mucous Membranes Moist Neck: NL Appearance and Movements; NL JVP Respiratory: Symmetrical Chest Expansion and Respiratory Effort, Clear to Auscultation, - - clear apices, no wheeze, no rales, no rhonchi Cardiovascular: NL Sounds; No Murmurs; No JVD, RRR, No Edema Abdominal: NL Sounds; No Tenderness; No Distention Extremities: No Edema, No Clubbing, Cyanosis Neurological: - - alert to person and place, forgetful, needs reorientation Nutrition: Taking PO's Result Diagrams: 01/13/19 09:58 01/13/19 09:58 Microbiology and Other Data: Microbiology 01/11/19 12:54 Aerobic Blood Culture - Preliminary Blood Venous Strep Mitis/Strep Oralis 01/11/19 12:53 Aerobic Blood Culture - Preliminary Blood Venous No Growth Day 1 Anaerobic Blood Culture - Preliminary No Growth Day 1 01/11/19 09:35 Urine Culture - Final Urine No Growth (<1,000 CFU/mL) 01/11/19 14:26 Stool Occult Blood (CASEY) - Final Stool 01/11/19 14:26 Stool Gross Appearance - Final Stool C. difficile DNA Amplification - Final 027 Presumptive NEGATIVE Toxigenic C.diff NEGATIVE Stool Lactoferrin - Final Diagnostic Imaging: Patient Name: GEORGIE JACKSON Medical Record#: [id number] Ordering Physician: Tobias Chicas MD Acct.#: [id number] : 1930 Age: 88 Sex: F Location: EMERGENCY DEPARTMENT Exam Date: 01/11/19819 ADM Status: REG ER Order Information: CHEST AP OR PORT Accession Number: [id number] CPT: 10259 Indication: Fall. Single frontal view of the chest performed at 0945 hours was reviewed. Comparison is made with previous exam dated April 09, 2004. No mediastinal shift is noted. Heart is of normal size and configuration. Lung webster appear clear. IMPRESSION: NO ACTIVE CARDIOPULMONARY DISEASE IS NOTED. Assess/Plan/Problems-Billing Assessment: This is an 88 year old female with hx of HTN, DM, and mild cognitive deficit that presents to ED after fall at home. - Patient Problems (1) Fall Comment: - With neck pain, CT cspine with no findings - 2/2 Uncontrolled hyperglycemia? Weakness? - PT eval (2) COPD with exacerbation Code(s): J44.1 - CHRONIC OBSTRUCTIVE PULMONARY DISEASE W (ACUTE) EXACERBATION SNOMED Code(s): 523199229 Comment: - Long hx of tobacco abuse - No consiolidation on chest xray - Continue ceftriaxone, nebs, discontinue solumedrol, no wheeze today and sugar is extremely elevated (3) Hyperglycemia Code(s): R73.9 - HYPERGLYCEMIA, UNSPECIFIED SNOMED Code(s): 78242028 Comment: - Uncontrolled, A1c >10 - Placed on lispro SS - Lantus added yesterday, will increase by 5u to 20 daily - Some of the presnet hyperglycemia can be attributed to IV steroid which I've discontinued - Received hydration in ED - Accuchecks ACHS (4) Lactic acidosis due to diabetes mellitus Code(s): E11.10 - TYPE 2 DIABETES MELLITUS WITH KETOACIDOSIS WITHOUT COMA SNOMED Code(s): 243624654 Comment: - No obvious source of infection, afebrile, no fever, no hypotension - Strep mitis/oralis in 1 bottle from blood cultures, likely contaminant but will continue ceftriaxone for now. If she remains afebrile and rest of blood cultures are negative, will discontinue - To be cautious, ECHO obtained to evaluate valves, no vegitation noted - Elevated WBC count which family says is her baseline for years with no etiology - Likely elevated in the presence of uncontrolled diabetes, normalized after IVF and glycemic control (5) Hypertension Code(s): I10 - ESSENTIAL (PRIMARY) HYPERTENSION SNOMED Code(s): 08050355 Comment: - Stable on amlodipine and lisinopril (6) Diarrhea Code(s): R19.7 - DIARRHEA, UNSPECIFIED SNOMED Code(s): 23230711 Comment: - No loose stools last 48 hours - Cdiff negative - Pending stool culture - Fecal lactoferrin positive, CT abdomen and pelvis with no acute findings, will continue lomotil PRN (7) CKD (chronic kidney disease) Code(s): N18.9 - CHRONIC KIDNEY DISEASE, UNSPECIFIED SNOMED Code(s): 219047658 Comment: - Stage 3/4 - Some improvement in creatinine after IVF - likely 2/2 uncontrolled diabetes - Avoid nephrotoxic agents (8) DVT prophylaxis Code(s): Z29.9 - ENCOUNTER FOR PROPHYLACTIC MEASURES, UNSPECIFIED SNOMED Code( s): 840102071 Comment: - HSQ (9) Full code status Code(s): Z78.9 - OTHER SPECIFIED HEALTH STATUS SNOMED Code(s): 162079043 Status and Disposition: Inpatient, dispo to home when medically stable. Social work consulted.
[2019-01-13] MEDS: Atorvastatin* 10 MG TAB PO SCH (17:37)
[2019-01-13] MEDS: CMCS:Imipramine (NF) 25 MG TAB PO SCH (21:56)
[2019-01-13] MEDS: Nicotine Patch Removal NOTE PATCH OFF SCH (21:58)
[2019-01-14 05:14] LABS: ABS Lymphocytes 1.7 10^3/ul (1.0-4.8); ABS Monocytes 1.1 10^3/ul (0-0.8); ABS Neutrophils 13.9 10^3/ul (1.5-7.7); Hematocrit 37 % (35-47); Hemoglobin 12.4 g/dL (12.0-16.0); Lymphocyte % 10.4 %; Mean Corpuscular HGB Conc 33 g/dL (31-36); Mean Corpuscular Hemoglobin 31 pg (27-31); Mean Corpuscular Volume 93 fL (80-97); Mean Platelet Volume 7.6 fL (7.4-10.4); Nucleated Red Blood Cells % 0.1; Platelet Count 193 10^3/uL (150-450); Red Blood Count 3.98 10^6 /uL (3.70-4.87); Red Cell Distribution Width 14 % (10-15); White Blood Count 16.7 10^3/uL (3.5-10.8)
[2019-01-14 05:21] LABS: Calcium 7.7 mg/dL (8.6-10.3); EGFR African American 63.6 (>60); EGFR Non-African American 52.6 (>60); Potassium 3.7 mmol/L (3.5-5.0)
[2019-01-14] MEDS: Heparin VIAL(*) 5000 UNITS/ML VIAL (FIVE THOUSAND) SUBCUT SCH ×3 (05:40→21:24)
[2019-01-14] MEDS: NS 0.9% 1000 ML** 1,000 ML IV SCH (08:51)
[2019-01-14] MEDS: Lisinopril TAB* 10 MG PO SCH (08:54)
[2019-01-14] MEDS: Metoprolol Succinate XL TAB* 100 MG PO SCH (08:55)
[2019-01-14] MEDS: Nicotine PATCH 21 MG/24 HR* PATCH TRANSDERM SCH (08:56)
[2019-01-14] MEDS: amLODIPine TAB* 5 MG PO SCH (08:56)
[2019-01-14] MEDS: Insulin LISPRO* 1 UNITS UNIT SUBCUT SCH ×4 (08:57→21:23)
[2019-01-14] MEDS ORDERED: Insulin GLARGINE(*) 1 UNITS UNIT SUBCUT SCH (09:00)
--- NOTE | 2019-01-14 15:31 | PN ---
Subjective Date of Service: 01/14/19 Interval History: Patient seen and examined. at bedside, he is persistent in his discussion about needing help at home and states "medicaid people are always calling us" and "I can't do much cause I can't see". Patient states no complaints today, denies diarrhea, no fever or SOB or chest pain. Objective Active Medications: Acetaminophen (Tylenol Tab*) 650 mg PO Q4H PRN PRN Reason: mild to moderate pain Acetaminophen/Codeine Phosphate (Tylenol/Codeine 30 Mg Tab*) 1 tab PO Q4H PRN PRN Reason: PAIN - MODERATE Albuterol/Ipratropium (Duoneb (Albuterol 2.5 Mg/Ipratropium 0.5 Mg)) 1 neb INH [id number] AWAKE PRN PRN Reason: SOB/WHEEZING Amlodipine Besylate (Norvasc Tab*) 10 mg PO DAILY [facility] Last Admin: 01/14/19 08:56 Dose: 10 mg Atorvastatin Calcium (Lipitor*) 10 mg PO QPM [facility]; Protocol Last Admin: 01/13/19 17:37 Dose: 10 mg Dextrose (Dextrose 50% Vial 50 Ml*) 25 ml IV PUSH .FOR FS < 60 - SS PRN PRN Reason: FS < 60 Diazepam (Valium Tab(*)) 5 mg PO BID PRN PRN Reason: ANXIETY Diphenoxylate HCl/Atropine (Lomotil Tab*) 1 tab PO QID PRN PRN Reason: DIARRHEA Heparin Sodium (Porcine) (Heparin Vial(*)) 5,000 units SUBCUT Q8HR [facility] Last Admin: 01/14/19 05:40 Dose: 5,000 units Sodium Chloride (Ns 0.9% 1000 Ml) 1,000 mls @ 100 mls/hr IV PER RATE [facility] Last Admin: 01/14/19 08:51 Dose: 100 mls/hr Ceftriaxone Sodium 1 gm/ (Sodium Chloride) 50 mls @ 100 mls/hr IVPB Q24H [facility] Last Admin: 01/13/19 16:28 Dose: 100 mls/hr Imipramine HCl (Imipramine (Nf)) 50 mg PO BEDTIME [facility] Last Admin: 01/13/19 21:56 Dose: 50 mg Insulin Glargine (Lantus(*)) 20 units SUBCUT Q24H [facility] Last Admin: 01/14/19 08:56 Dose: 20 units Insulin Human Lispro (Humalog*) 0 units SUBCUT ACHS [facility]; Protocol Last Admin: 01/14/19 13:24 Dose: Not Given Lisinopril (Prinivil Tab*) 40 mg PO DAILY [facility] Last Admin: 01/14/19 08:54 Dose: 40 mg Meclizine HCl (Antivert Tab*) 25 mg PO TID PRN PRN Reason: DIZZINESS Metoprolol Succinate (Toprol Xl Tab*) 100 mg PO DAILY [facility] Last Admin: 01/14/19 08:55 Dose: 100 mg Nicotine (Nicotine Patch 21 Mg/24 Hr*) 1 patch TRANSDERM DAILY@0800 [facility] Last Admin: 01/14/19 08:56 Dose: 1 patch Pharmacy Profile Note (Nicotine Patch Removal Note*) 1 note PATCH OFF 2100 [facility] Last Admin: 01/13/19 21:58 Dose: 1 note Vital Signs - 8 hr 01/14/19 08:00 Respiratory 16 Rate Oxygen Devices in Use Now: None Appearance: alert, forgetful, NAD Eyes: PERRLA Ears/Nose/Mouth/Throat: Mucous Membranes Moist Neck: NL Appearance and Movements; NL JVP, Trachea Midline Respiratory: Symmetrical Chest Expansion and Respiratory Effort, - - wxp wheeze at bases Cardiovascular: NL Sounds; No Murmurs; No JVD Abdominal: NL Sounds; No Tenderness; No Distention Extremities: No Edema Skin: No Rash or Ulcers Neurological: - - A&Ox2, forgetful, mild cognitive deficits noted Nutrition: Taking PO's Result Diagrams: 01/14/19 04:45 01/14/19 04:45 Microbiology and Other Data: Microbiology 01/11/19 12:54 Aerobic Blood Culture - Preliminary Blood Venous Strep Mitis/Strep Oralis 01/11/19 12:53 Aerobic Blood Culture - Preliminary Blood Venous No Growth Day 1 Anaerobic Blood Culture - Preliminary No Growth Day 1 01/11/19 09:35 Urine Culture - Final Urine No Growth (<1,000 CFU/mL) 01/11/19 14:26 Stool Occult Blood ([facility]SEY) - Final Stool 01/11/19 14:26 Stool Gross Appearance - Final Stool C. difficile DNA Amplification - Final 027 Presumptive NEGATIVE Toxigenic C.diff NEGATIVE Stool Lactoferrin - Final Diagnostic Imaging: Patient Name: GEORGIE JACKSON Medical Record#: [id number] Ordering Physician: Tobias Chicas MD Acct.#: [id number] : 1930 Age: 88 Sex: F Location: EMERGENCY DEPARTMENT Exam Date: 01/11/19819 ADM Status: REG ER Order Information: CHEST AP OR PORT Accession Number: [id number] CPT: 91897 Indication: Fall. Single frontal view of the chest performed at 0945 hours was reviewed. Comparison is made with previous exam dated April 09, 2004. No mediastinal shift is noted. Heart is of normal size and configuration. Lung webster appear clear. IMPRESSION: NO ACTIVE CARDIOPULMONARY DISEASE IS NOTED. Assess/Plan/Problems-Billing Assessment: This is an 88 year old female with hx of HTN, DM, and mild cognitive deficit that presents to ED after fall at home. - Patient Problems (1) Fall Comment: - With neck pain, CT cspine with no findings - 2/2 Uncontrolled hyperglycemia? Weakness? - PT evalwill likely need STR (2) COPD with exacerbation Code(s): J44.1 - CHRONIC OBSTRUCTIVE PULMONARY DISEASE W (ACUTE) EXACERBATION SNOMED Code(s): 530543135 Comment: - Long hx of tobacco abuse - No consiolidation on chest xray - Mild exp wheeze today, no fever. Will DC ceftriaxone and place on oral azithromycin for antiinflammatory properties (3) Hyperglycemia Code(s): R73.9 - HYPERGLYCEMIA, UNSPECIFIED SNOMED Code(s): 44200870 Comment: - Uncontrolled, A1c >10 - Placed on lispro SS, titrating lantus while patient was on IV steroid which is now DCd - Anion Gap was 12 yesterday, 7 today, IVF discontinued - Sugars with better control today, will decrease Lantus to 15units tomorrow with SS - Continue accuchecks ACHS - Patient should have outpatient endocrine follow up, concerned because she has mild dementia and is legally blind, insulin administration may be difficult situation at home (4) Lactic acidosis due to diabetes mellitus Code(s): E11.10 - TYPE 2 DIABETES MELLITUS WITH KETOACIDOSIS WITHOUT COMA SNOMED Code(s): 140527772 Comment: - No obvious source of infection, afebrile, no fever, no hypotension - Strep mitis/oralis in 1 bottle from blood cultures, likely contaminant - To be cautious, ECHO obtained to evaluate valves, no vegitation noted - Elevated WBC count which family says is her baseline for years with no etiology - Likely elevated in the presence of uncontrolled diabetes, normalized after IVF and glycemic control (5) Hypertension Code(s): I10 - ESSENTIAL (PRIMARY) HYPERTENSION SNOMED Code(s): 64278827 Comment: - Stable on amlodipine and lisinopril (6) Diarrhea Code(s): R19.7 - DIARRHEA, UNSPECIFIED SNOMED Code(s): 89951941 Comment: - No loose stools last 48 hours - Cdiff negative - Pending stool culture - Fecal lactoferrin positive, CT abdomen and pelvis with no acute findings, will continue lomotil PRN (7) CKD (chronic kidney disease) Code(s): N18.9 - CHRONIC KIDNEY DISEASE, UNSPECIFIED SNOMED Code(s): 000012115 Comment: - Stage 3/4 - Some improvement in creatinine after IVF - likely 2/2 uncontrolled diabetes - Avoid nephrotoxic agents (8) DVT prophylaxis Code(s): Z29.9 - ENCOUNTER FOR PROPHYLACTIC MEASURES, UNSPECIFIED SNOMED Code( s): 640112111 Comment: - HSQ (9) Full code status Code(s): Z78.9 - OTHER SPECIFIED HEALTH STATUS SNOMED Code(s): 154803871 Status and Disposition: Inpatient, Per PT note, may need rehab, SW consulted, CM following.
[2019-01-14] MEDS: cefTRIAXone(*) 1 GM in NS 0.9% 50 ML* 50 ML IVPB SCH (16:22)
[2019-01-14] MEDS: Atorvastatin* 10 MG TAB PO SCH (17:17)
[2019-01-14] MEDS: Azithromycin TAB* 250 MG PO SCH (17:18)
[2019-01-14] MEDS: CMCS:Imipramine (NF) 25 MG TAB PO SCH (21:23)
[2019-01-14] MEDS: Nicotine Patch Removal NOTE PATCH OFF SCH (21:25)
[2019-01-15 05:26] LABS: Hematocrit 38 % (35-47); Hemoglobin 12.7 g/dL (12.0-16.0); Mean Corpuscular HGB Conc 34 g/dL (31-36); Mean Corpuscular Hemoglobin 32 pg (27-31); Mean Corpuscular Volume 93 fL (80-97); Mean Platelet Volume 7.5 fL (7.4-10.4); Platelet Count 172 10^3/uL (150-450); Red Blood Count 4.04 10^6 /uL (3.70-4.87); Red Cell Distribution Width 14 % (10-15); White Blood Count 10.6 10^3/uL (3.5-10.8)
[2019-01-15] MEDS: Heparin VIAL(*) 5000 UNITS/ML VIAL (FIVE THOUSAND) SUBCUT SCH ×3 (05:43→21:44)
[2019-01-15 05:46] LABS: BUN/Creatinine Ratio 22.7 (8-20); Calcium 7.7 mg/dL (8.6-10.3); EGFR Non-African American 47.1 (>60); Potassium 3.8 mmol/L (3.5-5.0)
[2019-01-15 05:48] LABS: ABS Eosinophils 0.1 10^3/ul (0-0.6); ABS Lymphocytes 2.6 10^3/ul (1.0-4.8); ABS Monocytes 0.9 10^3/ul (0-0.8); Eosinophil % 0.5 %; Lymphocyte % 24.7 %; Nucleated Red Blood Cells % 0.1
[2019-01-15] MEDS ORDERED: Insulin GLARGINE(*) 1 UNITS UNIT SUBCUT SCH (09:00)
[2019-01-15] MEDS: amLODIPine TAB* 5 MG PO SCH (09:00)
[2019-01-15] MEDS: Metoprolol Succinate XL TAB* 100 MG PO SCH (09:00)
[2019-01-15] MEDS: Lisinopril TAB* 10 MG PO SCH (09:01)
[2019-01-15] MEDS: Insulin LISPRO* 1 UNITS UNIT SUBCUT SCH ×4 (09:02→21:43)
[2019-01-15] MEDS: Nicotine PATCH 21 MG/24 HR* PATCH TRANSDERM SCH (09:02)
--- NOTE | 2019-01-15 10:47 | PN ---
Subjective Date of Service: 01/15/19 Interval History: Ms. Rivas is feeling well today. She offers no complaints. She thinks she is going home today because someone told her yesterday that she would leave today. Denies CP, SOB, abdominal pain. She does admit to constipation - she reports she has not had a BM in 5-6 days. No concerns from nursing. Family History: Unchanged from Admission Social History: Unchanged from Admission Past Medical History: Unchanged from Admission Objective Active Medications: Acetaminophen (Tylenol Tab*) 650 mg PO Q4H PRN mild to moderate pain Acetaminophen/Codeine Phosphate (Tylenol/Codeine 30 Mg Tab*) 1 tab PO Q4H PRN PAIN - MODERATE Albuterol/Ipratropium (Duoneb (Albuterol 2.5 Mg/Ipratropium 0.5 Mg)) 1 neb INH [id number] AWAKE PRN SOB/WHEEZING Amlodipine Besylate (Norvasc Tab*) 10 mg PO DAILY [facility] Atorvastatin Calcium (Lipitor*) 10 mg PO QPM [facility]; Protocol Azithromycin (Zithromax Tab*) 250 mg PO DAILY@1600 [facility] Dextrose (Dextrose 50% Vial 50 Ml*) 25 ml IV PUSH .FOR FS < 60 - SS PRN FS < 60 Diazepam (Valium Tab(*)) 5 mg PO BID PRN ANXIETY Diphenoxylate HCl/Atropine (Lomotil Tab*) 1 tab PO QID PRN DIARRHEA Heparin Sodium (Porcine) (Heparin Vial(*)) 5,000 units SUBCUT Q8HR [facility] Imipramine HCl (Imipramine (Nf)) 50 mg PO BEDTIME [facility] Insulin Glargine (Lantus(*)) 15 units SUBCUT Q24H [facility] Insulin Human Lispro (Humalog*) 0 units SUBCUT ACHS [facility]; Protocol Lisinopril (Prinivil Tab*) 40 mg PO DAILY [facility] Meclizine HCl (Antivert Tab*) 25 mg PO TID PRN DIZZINESS Metoprolol Succinate (Toprol Xl Tab*) 100 mg PO DAILY [facility] Nicotine (Nicotine Patch 21 Mg/24 Hr*) 1 patch TRANSDERM DAILY@0800 [facility] Vital Signs - 8 hr 01/15/19 01/15/19 01/15/19 03:54 07:30 08:21 Temperature 97.3 F 98.5 F Pulse Rate 105 82 Respiratory 16 20 20 Rate Blood Pressure 127/81 148/70 (mmHg) O2 Sat by Pulse 97 96 Oximetry Oxygen Devices in Use Now: None Appearance: Elderly female lying in bed in NAD Ears/Nose/Mouth/Throat: Mucous Membranes Moist Neck: NL Appearance and Movements; NL JVP, Trachea Midline Respiratory: Symmetrical Chest Expansion and Respiratory Effort, Clear to Auscultation Cardiovascular: NL Sounds; No Murmurs; No JVD, RRR Abdominal: NL Sounds; No Tenderness; No Distention Extremities: No Edema Neurological: - - Oriented to self and place Lines/Tubes/Other Access: Clean, Dry and Intact Peripheral IV Nutrition: Taking PO's Result Diagrams: 01/15/19 05:01 01/15/19 05:01 Assess/Plan/Problems-Billing Assessment: Ms. Rivas is an 88 yo F with PMH of HTN, DM, and mild cognitive deficit; who presented to the ED after a fall and was found to be hypoglycemic and with a COPD exacerbation. - Patient Problems (1) Fall Comment: - With resulting neck pain - CT cspine with no findings - Multifactorial; uncontrolled hyperglycemia, weakness - Awaiting PT recommendations regarding need for ROSINA (2) COPD with exacerbation Code(s): J44.1 - CHRONIC OBSTRUCTIVE PULMONARY DISEASE W (ACUTE) EXACERBATION Comment: - Mild exacerbation - Long history of tobacco abuse and current smoker - No consiolidation on CXR - No indication for steroids - Continue azithromycin (day 2/5) (3) Diabetes mellitus Code(s): E11.9 - TYPE 2 DIABETES MELLITUS WITHOUT COMPLICATIONS Comment: - With hyperglycemia on admission - A1c 10.4% - Glucose now well controlled with addition of insulin - Would benefit from Endocrine f/u as an outpatient - Certainly needs insulin based on A1c, but d/t patient's dementia and her 's visual impairments (also questionable dementia), it is unlikely she will be able to be compliant after d/c - GFR is borderline for needing renally dosed metformin, but patient also had elevated lactic on admission which may be d/t metformin use, so she should likely not resume this at d/c - Continue Lantus, Lispro SS (4) Lactic acidosis due to diabetes mellitus Code(s): E11.10 - TYPE 2 DIABETES MELLITUS WITH KETOACIDOSIS WITHOUT COMA Comment: - No obvious source of infection - Strep mitis/oralis in 1 bottle from blood cultures, likely contaminant - To be cautious, echo obtained to evaluate valves and no vegitation noted - Elevated WBC count which family says is her baseline for years with no etiology - Likely elevated in the presence of uncontrolled diabetes and metformin use; normalized after IVF, glycemic control, and discontinuation of metformin (5) Diarrhea Code(s): R19.7 - DIARRHEA, UNSPECIFIED Comment: - Resolved - Workup was negative except for + fecal lactoferrin (6) Hypertension Code(s): I10 - ESSENTIAL (PRIMARY) HYPERTENSION Comment: - Normotensive - Continue amlodipine, lisinopril (7) CKD (chronic kidney disease) Code(s): N18.9 - CHRONIC KIDNEY DISEASE, UNSPECIFIED Comment: - Stage 3/4 - Some improvement in creatinine after IVF - Likely 2/2 uncontrolled diabetes - Avoid nephrotoxic agents (8) DVT prophylaxis Code(s): Z29.9 - ENCOUNTER FOR PROPHYLACTIC MEASURES, UNSPECIFIED Comment: - Heparin SQ (9) Full code status Code(s): Z78.9 - OTHER SPECIFIED HEALTH STATUS Comment: Status and Disposition: Inpatient. Anticipate she will require ROSINA. Case Management to follow up tomorrow. Attending: Keren Tyson
[2019-01-15] MEDS: Atorvastatin* 10 MG TAB PO SCH (16:32)
[2019-01-15] MEDS: Azithromycin TAB* 250 MG PO SCH (16:32)
[2019-01-15] MEDS ORDERED: metFORMIN* 500 MG TAB PO SCH (17:00)
[2019-01-15] MEDS: Nicotine Patch Removal NOTE PATCH OFF SCH (21:42)
[2019-01-15] MEDS: CMCS:Imipramine (NF) 25 MG TAB PO SCH (21:43)
[2019-01-16] MEDS: Heparin VIAL(*) 5000 UNITS/ML VIAL (FIVE THOUSAND) SUBCUT SCH ×3 (05:31→20:58)
[2019-01-16] MEDS: Nicotine PATCH 21 MG/24 HR* PATCH TRANSDERM SCH (09:15)
[2019-01-16] MEDS: Insulin GLARGINE(*) 1 UNITS UNIT SUBCUT SCH (09:16)
[2019-01-16] MEDS: Lisinopril TAB* 10 MG PO SCH (09:16)
[2019-01-16] MEDS: amLODIPine TAB* 5 MG PO SCH (09:16)
[2019-01-16] MEDS: Metoprolol Succinate XL TAB* 100 MG PO SCH (09:16)
[2019-01-16] MEDS: Insulin LISPRO* 1 UNITS UNIT SUBCUT SCH ×4 (09:17→21:02)
--- NOTE | 2019-01-16 09:55 | PN ---
Subjective Date of Service: 01/16/19 Interval History: Ms. Rivas is feeling well this morning. She would like to go home. Filling out her menu on my exam. Slept well overnight and ate breakfast this morning. Denies CP or SOB. No concerns from nursing. Family History: Unchanged from Admission Social History: Unchanged from Admission Past Medical History: Unchanged from Admission Objective Active Medications: Acetaminophen (Tylenol Tab*) 650 mg PO Q4H PRN mild to moderate pain Acetaminophen/Codeine Phosphate (Tylenol/Codeine 30 Mg Tab*) 1 tab PO Q4H PRN PAIN - MODERATE Albuterol/Ipratropium (Duoneb (Albuterol 2.5 Mg/Ipratropium 0.5 Mg)) 1 neb INH RT.[id number] AWAKE PRN SOB/WHEEZING Amlodipine Besylate (Norvasc Tab*) 10 mg PO DAILY [facility] Atorvastatin Calcium (Lipitor*) 10 mg PO QPM [facility]; Protocol Azithromycin (Zithromax Tab*) 250 mg PO DAILY@1600 [facility] Dextrose (Dextrose 50% Vial 50 Ml*) 25 ml IV PUSH .FOR FS < 60 - SS PRN FS < 60 Diazepam (Valium Tab(*)) 5 mg PO BID PRN ANXIETY Diphenoxylate HCl/Atropine (Lomotil Tab*) 1 tab PO QID PRN DIARRHEA Heparin Sodium (Porcine) (Heparin Vial(*)) 5,000 units SUBCUT Q8HR [facility] Imipramine HCl (Imipramine (Nf)) 50 mg PO BEDTIME [facility] Insulin Glargine (Lantus(*)) 12 units SUBCUT Q24H [facility] Insulin Human Lispro (Humalog*) 0 units SUBCUT ACHS [facility]; Protocol Lisinopril (Prinivil Tab*) 40 mg PO DAILY [facility] Meclizine HCl (Antivert Tab*) 25 mg PO TID PRN DIZZINESS Metoprolol Succinate (Toprol Xl Tab*) 100 mg PO DAILY [facility] Nicotine (Nicotine Patch 21 Mg/24 Hr*) 1 patch TRANSDERM DAILY@0800 [facility] Vital Signs - 8 hr 01/16/19 01/16/19 03:01 07:20 Temperature 97.6 F 97.5 F Pulse Rate 81 73 Respiratory 18 18 Rate Blood Pressure 143/77 124/68 (mmHg) O2 Sat by Pulse 97 98 Oximetry Oxygen Devices in Use Now: None Appearance: Elderly female lying in bed in NAD Ears/Nose/Mouth/Throat: Mucous Membranes Moist Neck: NL Appearance and Movements; NL JVP, Trachea Midline Respiratory: Symmetrical Chest Expansion and Respiratory Effort, Clear to Auscultation - Diminished Cardiovascular: NL Sounds; No Murmurs; No JVD, RRR Extremities: No Edema Neurological: - - Oriented to self and place Lines/Tubes/Other Access: Clean, Dry and Intact Peripheral IV Nutrition: Taking PO's Result Diagrams: 01/15/19 05:01 01/15/19 05:01 Assess/Plan/Problems-Billing Assessment: Ms. Rivas is an 88 yo F with PMH of HTN, DM, and mild cognitive deficit; who presented to the ED after a fall and was found to be hypoglycemic and with a COPD exacerbation. - Patient Problems (1) Fall Comment: - With resulting neck pain - CT cspine with no findings - Multifactorial; uncontrolled hyperglycemia, weakness - Awaiting PT recommendations regarding need for ROSINA (2) COPD with exacerbation Code(s): J44.1 - CHRONIC OBSTRUCTIVE PULMONARY DISEASE W (ACUTE) EXACERBATION Comment: - Mild exacerbation - Long history of tobacco abuse and current smoker - No consiolidation on CXR - No indication for steroids - Continue azithromycin (day 3/5) (3) Diabetes mellitus Code(s): E11.9 - TYPE 2 DIABETES MELLITUS WITHOUT COMPLICATIONS Comment: - With hyperglycemia on admission - A1c 10.4% - Glucose now well controlled with addition of insulin - Would benefit from Endocrine f/u as an outpatient - Certainly needs insulin based on A1c, but d/t patient's dementia and her 's visual impairments (also questionable dementia), it is unlikely she will be able to be compliant after d/c - GFR is borderline for needing renally dosed metformin, but patient also had elevated lactic on admission which may be d/t metformin use, so she should likely not resume this at d/c - Continue Lantus, Lispro SS (4) Lactic acidosis due to diabetes mellitus Code(s): E11.10 - TYPE 2 DIABETES MELLITUS WITH KETOACIDOSIS WITHOUT COMA Comment: - No obvious source of infection - Strep mitis/oralis in 1 bottle from blood cultures, likely contaminant - To be cautious, echo obtained to evaluate valves and no vegitation noted - Elevated WBC count which family says is her baseline for years with no etiology - Likely elevated in the presence of uncontrolled diabetes and metformin use; normalized after IVF, glycemic control, and discontinuation of metformin (5) Diarrhea Code(s): R19.7 - DIARRHEA, UNSPECIFIED Comment: - Resolved - Workup was negative except for + fecal lactoferrin (6) Hypertension Code(s): I10 - ESSENTIAL (PRIMARY) HYPERTENSION Comment: - Normotensive - Continue amlodipine, lisinopril (7) CKD (chronic kidney disease) Code(s): N18.9 - CHRONIC KIDNEY DISEASE, UNSPECIFIED Comment: - Stage 3/4 - Some improvement in creatinine after IVF - Likely 2/2 uncontrolled diabetes - Avoid nephrotoxic agents (8) DVT prophylaxis Code(s): Z29.9 - ENCOUNTER FOR PROPHYLACTIC MEASURES, UNSPECIFIED Comment: - Heparin SQ (9) Full code status Code(s): Z78.9 - OTHER SPECIFIED HEALTH STATUS Comment: Status and Disposition: Inpatient. Anticipate she will require ROSINA. She will need insulin going forward and it is unlikely that she and her can manage that at home. Case Management to follow up tomorrow. Attending: Hansel Florez
[2019-01-16] MEDS ORDERED: Magnesium Hydroxide LIQ* 30 ML UDC PO PRN (12:17)
[2019-01-16] MEDS: Polyethylene Glycol 3350* 17 GM PACKET PO SCH (12:42)
[2019-01-16] MEDS: Azithromycin TAB* 250 MG PO SCH (16:29)
[2019-01-16] MEDS: Atorvastatin* 10 MG TAB PO SCH (16:29)
[2019-01-16] MEDS: Acetaminophen TAB* 325 MG PO PRN (18:38)
[2019-01-16] MEDS: Nicotine Patch Removal NOTE PATCH OFF SCH (19:46)
[2019-01-16] MEDS: CMCS:Imipramine (NF) 25 MG TAB PO SCH (20:57)
[2019-01-17] MEDS: Heparin VIAL(*) 5000 UNITS/ML VIAL (FIVE THOUSAND) SUBCUT SCH ×3 (05:42→21:39)
[2019-01-17] MEDS: Nicotine PATCH 21 MG/24 HR* PATCH TRANSDERM SCH (08:34)
[2019-01-17] MEDS: Polyethylene Glycol 3350* 17 GM PACKET PO SCH (08:35)
[2019-01-17] MEDS: Metoprolol Succinate XL TAB* 100 MG PO SCH (08:37)
[2019-01-17] MEDS: Insulin LISPRO* 1 UNITS UNIT SUBCUT SCH ×4 (08:37→21:47)
[2019-01-17] MEDS: Lisinopril TAB* 10 MG PO SCH (08:37)
[2019-01-17] MEDS: Insulin GLARGINE(*) 1 UNITS UNIT SUBCUT SCH (08:37)
[2019-01-17] MEDS: amLODIPine TAB* 5 MG PO SCH (08:37)
--- NOTE | 2019-01-17 11:01 | DS ---
CC: Dr. Justin Quiles; [facility] * DATE OF ADMISSION: 01/11/2019. DATE OF DISCHARGE: 01/17/2019. PRIMARY CARE PHYSICIAN: Dr. Justin Quiles. ATTENDING PHYSICIAN: Dr. Jose Florez * (dictated by Carly Kolb NP). PRIMARY DIAGNOSES: 1. COPD exacerbation. 2. Uncontrolled diabetes mellitus. 3. Lactic acidosis due to hyperglycemia and Metformin. 4. Acute on chronic kidney injury, baseline stage 3/4 CKD. SECONDARY DIAGNOSES: 1. Hypertension. 2. Dementia. STUDIES WHILE IN THE HOSPITAL: 1. EKG on 01/11/2019 shows normal sinus rhythm with a rate of 88, QTC 429, Q- waves and inferior leads. 2. Brain CT on 01/11/2019, reads as: No evidence for acute intracranial abnormality. Old right lacunar infarct. 3. Cervical spine CT on 01/11/2019, reads as: No evidence for fracture. Moderate cervical spondylosis as described. Multiple thyroid nodules. Recommend a follow- up outpatient thyroid ultrasound for further evaluation. 4. Chest x-ray on 01/11/2019, reads as: No active cardiopulmonary disease. 5. Abdomen and pelvis CT on 01/12/2019, reads as: Nonspecific distention of small bowel in the left mid abdomen. The colon is filled with stool. No fluid is noted. There is diverticulosis of the sigmoid colon without definite evidence of diverticulitis. No definite free fluid is identified. Likely hepatic cyst or hemangioma in the left lobe of the liver, as well as in the dome of the liver adjacent to the inferior vena cava. 6. Transthoracic echocardiogram on 01/13/2019, reads as: The left ventricle cavity size is normal. Wall thickness is mildly increased. Systolic function is normal. The estimated ejection fraction is 55 to 60 percent. Wall motion is normal. There are no regional wall motion abnormalities. Doppler parameters are consistent with abnormal left ventricular relaxation (grade 1 diastolic dysfunction). The right atrium is mildly dilated. There is mild MR. No intra- cardiac vegetation seen on this transthoracic echocardiogram. There is no prior echocardiogram available to compare with at this time. HISTORY OF PRESENT ILLNESS/HOSPITAL COURSE: Ms. Rivas is an 88-year-old female with a past medical history of hypertension, hyperlipidemia, diabetes, and dementia who presented to the emergency room on 01/11/2019 after a fall with subsequent neck pain. Please see the history and physical by Silvana Mills , PA for a complete summary of the events leading up to this hospitalization. In short, the patient sustained a mechanical fall at home after slipping in the bathroom. The fall was witnessed by her . In the emergency room, the patient had imaging as noted above. She had lab work which did show leukocytosis. There was an anion gap that resolved with IV fluids. She had hyperglycemia with a glucose up into the 400s. She was also noted to have an elevated lactic acid at 3.7 for which she was given IV fluids. She had some mild acute on chronic kidney injury. The patient was admitted by the Hospitalist Service. Hypoglycemia resolved with administration of insulin. Again, anion gap resolved with administration of fluids. It was suspected that her anion gap was secondary to dehydration. Lactic acid also resolved with IV fluid. There was no evidence of infection and lactic acid was likely elevated secondary to hypoglycemia, dehydration, as well as Metformin use. The patient was taken off oral diabetes medications while here in the hospital. She was started on Lantus with improvement in blood sugar. She additionally was noted to have a mild COPD exacerbation for which she was started on Azithromycin. She did not have any evidence of pneumonia and did not require any steroids. At this point, it has been determined that the patient will need to be on insulin going forward. She should not resume Metformin as this was likely a large contributing factor to her lactic acidosis and she was noted to have an A1c of 10.4 percent, so would certainly benefit from insulin. It is unclear at this point if the patient would be able to self-administer insulin at home due to some mild to moderate dementia. The patient's is also noted to be visually impaired, so it is unclear if this is a safe plan going forward. Nonetheless, the patient has been evaluated by Physical Therapy here in the hospital who is recommending short-term rehab. The patient and her family are agreeable to this. The patient reports feeling well today and offers on complaints. On exam, she is alert and oriented, though certainly confused and forgetful at times. She has no focal neurological deficits. Her heart is a regular rate and rhythm without murmurs, rubs, or gallops. Her lungs are clear to auscultation without rhonchi, wheezes, or rubs. Abdomen is soft and nontender to palpation. There is no edema. Physical exam is otherwise benign. Ms. [place] is stable for discharge today. Most recent vitals are as follows: Temperature 97.6, heart rate 79, respiratory rate 18, oxygen saturation 95 percent on room air, blood pressure 138/59. DISCHARGE MEDICATIONS: New medications: 1. Azithromycin 250 mg p.o. daily times 1 day. 2. Glargine 12 units subcu daily. 3. Milk of Magnesia 30 ml p.o. q.6 hours prn constipation. 4. Nicotine patch 21 mg one patch transdermal daily. 5. MiraLax 17 gm p.o. daily. 6. Januvia 50 mg p.o. daily. Continued medications: 1. Acetaminophen/Codeine 30 mg one tab p.o. q.4 hours prn pain. 2. Amlodipine 10 mg p.o. daily. 3. Diazepam 5 mg p.o. b.i.d. prn anxiety. 4. Lomotil 2.5/0.025 mg one tab p.o. q.i.d. prn diarrhea. 5. Imipramine 50 mg p.o. at bedtime. 6. Lisinopril 40 mg p.o. daily. 7. Meclizine 25 mg p.o. t.i.d. prn dizziness. 8. Metoprolol Succinate 100 mg p.o. daily. 9. Pravastatin 40 mg p.o. at bedtime. Discontinued medications: 1. Glyburide. 2. Metformin. DISCHARGE PLAN: Ms. Rivas will be discharged to subacute rehab. Medications are noted above. The patient has been started on long-acting insulin and Januvia for management of her glucose. Metformin, again, has been discontinued due to the presence of lactic acidosis on admission. I think it is also unwise for her to remain on Glyburide with the new addition of insulin and I think Januvia is certainly a better choice at this point. She will need to complete one additional day of Azithromycin to complete a total of five days of antibiotic therapy for her mild COPD exacerbation. Bowel medications have additionally been ordered due to some mild constipation while here in the hospital. The patient can resume her usual medications as noted above. She will need to follow-up with her primary care provider upon discharge from subacute rehab and should follow-up with a provider shortly after arrival to the facility. ACTIVITY: As tolerated. DIET: Consistent carb, diabetic. She should return to the emergency room or nearest hospital for any worsening of symptoms, shortness of breath, lightheadedness, dizziness, chest discomfort, high fevers, chills, night sweats, loss of consciousness or any other worrisome signs or symptoms. CONDITION ON DISCHARGE: Stable. DISCHARGE DISPOSITION: custodial [facility], [facility]. This is a summarized report of a complex medical history and hospital stay. For further details, please see the entire medical record. TIME SPENT: Approximately 40 minutes were spent on this discharge. CARLY KOLB, LAST TRIMMER [id number]/CPS #: [id number] MICHEAL
[2019-01-17] MEDS ORDERED: Magnesium CITRATE* 300 ML BTL PO ONE (13:49)
[2019-01-17] MEDS ORDERED: Bisacodyl SUPP* 10 MG SUPP PR PRN (13:49)
[2019-01-17] MEDS: Azithromycin TAB* 250 MG PO SCH (16:58)
[2019-01-17] MEDS: Atorvastatin* 10 MG TAB PO SCH (17:06)
[2019-01-17] MEDS: CMCS:Imipramine (NF) 25 MG TAB PO SCH (21:39)
[2019-01-17] MEDS: Nicotine Patch Removal NOTE PATCH OFF SCH (21:47)
[2019-01-18] MEDS: Heparin VIAL(*) 5000 UNITS/ML VIAL (FIVE THOUSAND) SUBCUT SCH (06:08)
[2019-01-18] MEDS: Insulin LISPRO* 1 UNITS UNIT SUBCUT SCH (08:05)
[2019-01-18] MEDS: Insulin GLARGINE(*) 1 UNITS UNIT SUBCUT SCH (08:06)
[2019-01-18] MEDS: Metoprolol Succinate XL TAB* 100 MG PO SCH (08:09)
[2019-01-18] MEDS: amLODIPine TAB* 5 MG PO SCH (08:09)
[2019-01-18] MEDS: Nicotine PATCH 21 MG/24 HR* PATCH TRANSDERM SCH (08:09)
[2019-01-18] MEDS: Acetaminophen TAB* 325 MG PO PRN (08:09)
[2019-01-18] MEDS: Lisinopril TAB* 10 MG PO SCH (08:09)
[2019-01-18] MEDS: Polyethylene Glycol 3350* 17 GM PACKET PO SCH (08:10)
[2019-01-18 08:30] VITALS: BP 142/60
== END 2019-01-18 09:15 | DRG 191 ==
LOC: ED 08:11 → MED 16:18
PROVIDERS: ADMIT Internal Medicine; ATTEND Internal Medicine
DX: J44.1 Chronic obstructive pulmonary disease with (acute) exacerbation (principal); N18.4 Chronic kidney disease, stage 4 (severe); N17.9 Acute kidney failure, unspecified; E87.2 Acidosis; E11.65 Type 2 diabetes mellitus with hyperglycemia; E11.22 Type 2 diabetes mellitus with diabetic chronic kidney disease; I12.9 Hypertensive chronic kidney disease with stage 1 through stage 4 chronic kidney disease, or unspecified chronic kidney disease; F03.90 Unspecified dementia, unspecified severity, without behavioral disturbance, psychotic disturbance, mood disturbance, and anxiety; K57.30 Diverticulosis of large intestine without perforation or abscess without bleeding; E78.5 Hyperlipidemia, unspecified; W01.0XXA Fall on same level from slipping, tripping and stumbling without subsequent striking against object, initial encounter; E86.0 Dehydration; K59.00 Constipation, unspecified; K31.83 Achlorhydria; M54.2 Cervicalgia; F41.9 Anxiety disorder, unspecified; D72.829 Elevated white blood cell count, unspecified; F17.210 Nicotine dependence, cigarettes, uncomplicated; R42 Dizziness and giddiness; R19.7 Diarrhea, unspecified; Y92.002 Bathroom of unspecified non-institutional (private) residence as the place of occurrence of the external cause; Z86.73 Personal history of transient ischemic attack (TIA), and cerebral infarction without residual deficits; Z79.84 Long term (current) use of oral hypoglycemic drugs; Z79.1 Long term (current) use of non-steroidal anti-inflammatories (NSAID); Z79.899 Other long term (current) drug therapy; Z88.1 Allergy status to other antibiotic agents; Z88.2 Allergy status to sulfonamides; Z88.8 Allergy status to other drugs, medicaments and biological substances; Z82.49 Family history of ischemic heart disease and other diseases of the circulatory system; Z83.3 Family history of diabetes mellitus
CPT/HCPCS: 36415; 70450; 71045; 72125; 74176; 80048; 80053; 80320; 80329; 81003; 81015; 82140; 82272; 82550; 82803; 82947; 83036; 83605; 83630; 83735; 84439; 84443; 84484; 85025; 85610; 87040; 87045; 87046; 87077; 87086; 87205; 87493; 87899; 93005; 93306; 94640; 99284; A9270-GY; G0480; G8978-GP-CJ; G8978-GP-CL; G8979-GP-CI; J0696; J1644; J2930; J3475

== ENCOUNTER 2019-02-09 06:51 | Emergency (ER) | payer MEDICARE ==
--- OUTSIDE RECORDS SUMMARY | 2019-02-09 07:38 | XMS REPORT | Continuity of Care Document ---
:1930 External Reference #:[id number] Author Name Santino Nagy M.D. Address [address] [place] [id number] Care Team Providers Name Role Phone Justin Quiles M.D. 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 Onset: 10/12/2014 Type 2 diabetes mellitus Santino Nagy M.D. Onset: 10/12/2014 Mild / Early Stage Glaucoma Santino Nagy M.D. Onset: 10/12/2014 Pseudophakia Santino Nagy M.D. Onset: 10/12/2014 Hearing loss Onset: Bilateral primary open angle glaucoma Santino Nagy M.D. Onset: 07/03/2016 Social History Type Date Description Comments Sex Unknown ETOH Use Denies alcohol use Tobacco Use Start: Unknown Light tobacco smoker (10 or fewer cigarettes/day) Recreational Drug Use Denies Drug Use Smoking Status Reviewed: 12/26/18 Light tobacco smoker (10 or fewer cigarettes/day) Allergies, Adverse Reactions, Alerts Active Allergies Reaction Severity Comments Date Cipro 10/12/2014 Sulfa Antibiotics 10/12/2014 Zocor 10/12/2014 Medications Active Medications SIG Qnty Indications Ordering Provider Date Pred Forte One drop three 5ml H40.1131 Santino Nagy, 12/26/2018 1% times a day for M.D. Suspension three days OD, then three times a day for three days OS. Only after procedure. Timolol Maleate instill 1 drop 10units H40.1131 Ellie Gould, 07/14/2018 Ophthalmic Gel in both eyes O.D. Forming every morning 0.5% GFS Latanoprost instill one drop 6units H40.11x1 Ellie Gould, 04/30/2015 0.005% into each eye in O.D. Solution the evening Captopril Mohyuddin, 50mg Tablets Nikole Eldridge Glyburide-Metformin Etta, Justin M.DDuc 5-500mg Tablets Acetaminophen-Codeine Skmichael, Justin #3 M.D. 300-30mg Tablets Imipramine HCL Johny, 50mg Nikole Eldridge Tablets Pravastatin Sodium Skheide, Justin 40mg M.D. Tablets Diphenoxylate-Atropin Etta, Justin e M.DDuc 2.5-0.025mg Tablets Metoprolol Succinate Skheideas, Justin ER M.D. 100mg Tablets ER 24HR Meclizine HCL Unknown 25mg Tablets Diazepam Unknown 5mg Tablets Proctozone-HC Unknown 2.5% Cream Immunizations Description No Information Available Vital Signs Date Vital Result Comment 01/11/2017 2:51pm BP Systolic 166 mmHg BP Diastolic 98 mmHg Heart Rate 92 /min Respiratory Rate 16 /min 01/04/2017 3:49pm BP Systolic 165 mmHg BP Diastolic 101 mmHg Heart Rate 107 /min Respiratory Rate 18 /min Results Description No Information Available Procedures Description No Information Available Medical Devices Description No Information Available Encounters Type Date Location Provider Dx Diagnosis Office Visit 08/16/2018 Ellie Knowles, H40.1131 Primary 11:45a karla BROWNLEE O.D. open-angle glaucoma, bilateral, mild stage Office Visit 07/14/2018 Ellie Knowles, H40.1131 Primary 12:45p karla BROWNLEE O.D. open-angle glaucoma, bilateral, mild stage Assessments Date Code Description Provider 12/26/2018 H40.1131 Primary open-angle glaucoma, bilateral, Santino Nagy M.D. mild stage 12/26/2018 E11.9 Type 2 diabetes mellitus without Santino Nagy M.D. complications 12/26/2018 Z96.1 Presence of intraocular lens Santino Nagy M.D. 08/16/2018 H40.1131 Primary open-angle glaucoma, bilateral, Ellie Gould O.D. mild stage 07/14/2018 H40.1131 Primary open-angle glaucoma, bilateral, Ellie Gould O.D. mild stage Plan of Treatment 12/26/2018 - Santino Nagy M.D.H40.1131 Primary open-angle glaucoma, bilateral, mild stageNew Medication:Pred Forte 1 % - One drop three times a day for three days OD, then three times a day for three daysOS. Only after procedure.Comments:Smoking can increase the risk of developing or worsening any eye related disease, as well as affect your overall health. If you are a smoker , we strongly recommend that you quit.If you are not a smoker, we strongly recommend that you do not start. The pressure in your eyes is not at the level it should be to be considered well controlled. We will schedule you an appointment for the Selective LaserTrabeculoplasty in both eyes. Please read the pamphlet that Dr. Nagy has printed out for you aboutthe laser. We have sent in Pred Forte 1% or the generic version of that drop to your pharmacy. You are to use this drop three times a day for three days after the laser in the eye that is having the treatment. Do not throw the bottle out, so you can use this for the other eye. Please bring the bottle of medication in with you to your appointment and show it to the shale processing technician to verify that you have picked up the correct medication. We recommend that you bring someone to drive you home.Follow up:Schedule SLT OD, THEN SCHEDULE OS Schedule 6 week follow up IOP check (Undilated)E11.9 Type 2 diabetes mellitus without complicationsComments:You have diabetes. I do not detect any changes in both of your retinas from diabetes at this time. Proper control of your diabetes is important for the health of your eyes. Changes in your eyes from diabetes can happen without symptoms, so it is important that you have your eyes examined. Dr. Nagy has sent a report to your primary care doctor, letting them know there is no damage from the Diabetes in your eyes.Z96.1 Presence of intraocular lensComments:The artificial lens implants in both eyes appear to be stable at this time. Functional Status Description No Information Available Mental Status Description No Information Available Referrals Description No Information Available
[2019-02-09 08:26] VITALS: BP 124/61
--- NOTE | 2019-02-09 08:28 | ED ---
Head Injury - HPI Summary HPI Summary: This patient is an 88-year-old female presenting to the ED from [facility] with complaint of head injury. She states she tripped over her walker unweighted restaurant, fell backward and hit the right posterior portion of her head on the wall. She denies any LOC. Denies any confusion, memory loss , visual changes or disturbances, or headache. Patient states she feels otherwise well, however is endorsing a small palpable area to the R posterior area. Denies other symptoms. Pt has slight dementia. - History Of Current Complaint Chief Complaint: EDFall Stated Complaint: FALL PER EMS Time Seen by Provider: 02/09/19 06:56 Hx Obtained From: Patient Mechanism Of Injury: Direct Blow Onset/Duration: Started Hours Ago Onset of Pain: Hours Severity Currently: Mild Severity Initially: Mild Pain Intensity: 0 Pain Scale Used: 0-10 Numeric Location of Head Injury: Occipital Location: Discrete At: - right posterior scalp Character: Sharp Aggravating Factor(s): Movement Associated Signs And Symptoms: Negative - Risk Factors SDH Risk Factor: Negative - Allergies/Home Medications Allergies/Adverse Reactions: Allergies Allergy/AdvReac Type Severity Reaction Status Date / Time ciprofloxacin [From Cipro] Allergy GI Upset Verified 01/11/19 08:29 simvastatin Allergy GI Upset Verified 01/11/19 08:29 Sulfa (Sulfonamide Allergy Hives Verified 01/11/19 08:29 Antibiotics) PMH/Surg Hx/FS Hx/Imm Hx Previously Healthy: Yes Endocrine/Hematology History: Reports: Hx Diabetes Cardiovascular History: Reports: Hx Hypercholesterolemia, Hx Hypertension History: Reports: Other Problems/Disorders - Urine infections Musculoskeletal History: Reports: Other Musculoskeletal History - neck problems Sensory History: Reports: Hx Contacts or Glasses Denies: Hx Hearing Aid Opthamlomology History: Reports: Hx Contacts or Glasses Neurological History: Reports: Hx Dementia - she is at her baseline Psychiatric History: Reports: Hx Anxiety, Hx Depression - Surgical History Surgery Procedure, Year, and Place: patient is a poor historian - Immunization History Date of Influenza Vaccine: 12/02/2018 Hx Pertussis Vaccination: No Immunizations Up to Date: Yes Infectious Disease History: No Infectious Disease History: Denies: Traveled Outside the [place] in Last 30 Days - Family History Known Family History: Positive: Unknown - patient is a poor historian Negative: Blood Disorder - Social History Occupation: Unemployed [facility]: [facility] Alcohol Use: None Hx Substance Use: No Substance Use Type: Reports: None Hx Tobacco Use: Yes Smoking Status (MU): Current Every Day Smoker Type: Cigarettes Amount Used/How Often: 1/2 ppd Length of Time of Smoking/Using Tobacco: 70 years Have You Smoked in the Last Year: Yes Review of Systems Negative: Fever, Chills, Fatigue, Skin Diaphoresis Negative: Palpitations, Chest Pain Negative: Shortness Of Breath, Cough Genitourinary: Negative Positive: no symptoms reported, see HPI Negative: Arthralgia, Myalgia Skin: Negative Neurological: Negative Negative: Headache, Weakness, Paresthesia, Numbness, Syncope All Other Systems Reviewed And Are Negative: Yes Physical Exam Triage Information Reviewed: Yes Vital Signs On Initial Exam: Initial Vitals Temp Pulse Resp BP Pulse Ox 98.7 F 73 18 158/57 97 02/09/19 06:57 02/09/19 06:57 02/09/19 06:57 02/09/19 06:57 02/09/19 06:57 Vital Signs Reviewed: Yes Appearance: Positive: Well-Appearing, Well-Nourished Skin: Positive: Warm, Skin Color Reflects Adequate Perfusion Head/Face: Positive: Normal Head/Face Inspection Eyes: Positive: LESVIA, Conjunctiva Clear Neck: Positive: Supple, Nontender, No Lymphadenopathy Respiratory/Lung Sounds: Positive: Clear to Auscultation, Breath Sounds Present Cardiovascular: Positive: RRR, Pulses are Symmetrical in both Upper and Lower Extremities Musculoskeletal: Positive: Normal, Strength/ROM Intact Neurological: Positive: Speech Normal Psychiatric: Positive: Normal, Affect/Mood Appropriate AVPU Assessment: Alert Procedures - Sedation Patient Received Moderate/Deep Sedation with Procedure: No Diagnostics - Vital Signs Vital Signs Temp Pulse Resp BP Pulse Ox 02/09/19 07:17 75 95 02/09/19 06:57 98.7 F 73 18 158/57 97 - Laboratory Lab Statement: Any lab studies that have been ordered have been reviewed, and results considered in the medical decision making process. Head Injury Course/Dx Course Of Treatment: Patient is evaluated for head injury. She denies any confusion, memory loss, visual changes or disturbances, or LOC. States she is otherwise feeling well. She does endorse a small area to the right posterior area of the back of the head which she endorses a 1/10 pain. Patient has slight dementia, however is appearing and acting well. Alert and oriented [address] brain obtained which shows no evidence of acute abnormality. Patient denies any neck pain and there is no pain on palpation throughout the spine. She does have some tenderness just to the right paraspinal region, however this is mild 1/10. Patient will be discharged with diagnosis of head injury and is okay to return to assisted. - Diagnoses Differential Diagnosis/HQI/PQRI: Contusion, Hematoma Provider Diagnoses: Head injury Discharge ED - Sign-Out/Discharge Documenting (check all that apply): Patient Departure - Discharge Plan Condition: Stable Disposition: HOME Patient Education Materials: Head Injury (ED) Referrals: Justin Quiles MD [Primary Care Provider] - Additional Instructions: Place ice over the area Tylenol for any discomfort - Billing Disposition and Condition Condition: STABLE Disposition: Home - Attestation Statements Provider Attestation: I was available for consultation for this patient. I did not evaluate the patient or participate in any medical decision making or disposition decisions unless I am specifically named in the chart as having consulted on the patient. If I have consulted on the patient, please see my own ED note on the patient encounter. Primo Salmaanca MD
== END 2019-02-09 08:24 | disposition home or self-care (01) ==
LOC: ED 06:51
DX: S09.90XA Unspecified injury of head, initial encounter (principal); W18.09XA Striking against other object with subsequent fall, initial encounter; Y92.511 Restaurant or cafe as the place of occurrence of the external cause; E11.9 Type 2 diabetes mellitus without complications; E78.00 Pure hypercholesterolemia, unspecified; I10 Essential (primary) hypertension; F03.90 Unspecified dementia, unspecified severity, without behavioral disturbance, psychotic disturbance, mood disturbance, and anxiety; F41.9 Anxiety disorder, unspecified; F32.9 Major depressive disorder, single episode, unspecified; F17.210 Nicotine dependence, cigarettes, uncomplicated; Z88.1 Allergy status to other antibiotic agents; Z88.2 Allergy status to sulfonamides; Z88.8 Allergy status to other drugs, medicaments and biological substances
CPT/HCPCS: 70450; 87641; 99282

== ENCOUNTER 2019-02-19 13:59 | Emergency (ER) | payer MEDICARE ==
[2019-02-19 14:33] LABS: Hematocrit 31 % (35-47); Hemoglobin 10.2 g/dL (12.0-16.0); Mean Corpuscular HGB Conc 33 g/dL (31-36); Mean Corpuscular Hemoglobin 31 pg (27-31); Mean Corpuscular Volume 93 fL (80-97); Mean Platelet Volume 7.4 fL (7.4-10.4); Platelet Count 336 10^3/uL (150-450); Red Blood Count 3.33 10^6 /uL (3.70-4.87); Red Cell Distribution Width 14 % (10-15)
--- NOTE | 2019-02-19 14:34 | ED ---
Complex/Multi-Sys Presentation - HPI Summary HPI Summary: Patient is an 88 y/o F presenting to [facility] via EMS for a chief complaint of altered mental status. Patient was sent to [facility] from [facility] after staff at [facility] noticed the patient had intermittent altered mental status. On route to the ED, patient was given albuterol for wheezing. Patient denies cough, fever , urinary burning, headache, chest pain, shortness of breath, or vision changes. She was diagnosed with pneumonia 5 days ago and was placed on antibiotics. PMHx is significant for diabetes mellitus, hypercholesterolemia, and hypertension. - History Of Current Complaint Chief Complaint: EDAltMentalStatus Time Seen by Provider: 02/19/19 14:05 Hx Obtained From: Patient Onset/Duration: Sudden Onset, Resolved Timing: Days Severity Currently: Moderate Severity Initially: Moderate Associated Signs And Symptoms: Negative: Headache, SOB, Cough, Chest Pain, Dysuria - Urinary burning, Fever, Other - Negative vision changes Related History: Recent Illness - Pneumonia - Allergies/Home Medications Allergies/Adverse Reactions: Allergies Allergy/AdvReac Type Severity Reaction Status Date / Time ciprofloxacin [From Cipro] Allergy GI Upset Verified 01/11/19 08:29 simvastatin Allergy GI Upset Verified 01/11/19 08:29 Sulfa (Sulfonamide Allergy Hives Verified 01/11/19 08:29 Antibiotics) PMH/Surg Hx/FS Hx/Imm Hx Previously Healthy: Yes Endocrine/Hematology History: Reports: Hx Diabetes Cardiovascular History: Reports: Hx Hypercholesterolemia, Hx Hypertension History: Reports: Other Problems/Disorders - Urine infections Musculoskeletal History: Reports: Other Musculoskeletal History - neck problems Sensory History: Reports: Hx Contacts or Glasses Denies: Hx Legally Blind, Hx Deafness, Hx Hearing Aid Opthamlomology History: Reports: Hx Contacts or Glasses Denies: Hx Legally Blind EENT History: Denies: Hx Deafness Neurological History: Reports: Hx Dementia - she is at her baseline Psychiatric History: Reports: Hx Anxiety, Hx Depression - Surgical History Surgical History: None Surgery Procedure, Year, and Place: patient is a poor historian - Immunization History Date of Influenza Vaccine: 12/02/2018 Infectious Disease History: No Infectious Disease History: Denies: Traveled Outside the [place] in Last 30 Days - Family History Known Family History: Negative: Blood Disorder - Social History Occupation: Retired Lives: Assisted Living Alcohol Use: None Hx Substance Use: No Substance Use Type: Reports: None Hx Tobacco Use: Yes Smoking Status (MU): Former Smoker Type: Cigarettes Amount Used/How Often: 1/2 ppd Length of Time of Smoking/Using Tobacco: 70 years Have You Smoked in the Last Year: Yes Review of Systems Negative: Fever Negative: Other - Negative vision changes Negative: Chest Pain Negative: Shortness Of Breath, Cough Negative: burning - Urinary Negative: Headache All Other Systems Reviewed And Are Negative: Yes Physical Exam - Summary Physical Exam Summary: VITAL SIGNS: Reviewed. GENERAL: Patient is a well-developed and nourished FEMALE who is lying comfortable in the stretcher. Patient is not in any acute respiratory distress. HEAD AND FACE: No signs of trauma. No ecchymosis, hematomas or skull depressions. No sinus tenderness.. EYES: PERRLA, EOMI x 2, No injected conjunctiva, no nystagmus. EARS: Hearing grossly intact. Ear canals and tympanic membranes are within normal limits. MOUTH: Oropharynx within normal limits. NECK: Supple, trachea is midline, no adenopathy, no JVD, no carotid bruit, no c- spine tenderness, neck with full ROM. CHEST: Symmetric, no tenderness at palpation. LUNGS: Clear to auscultation bilaterally. No wheezing or crackles. CVS: Regular rate and rhythm, S1 and S2 present, no murmurs or gallops appreciated. ABDOMEN: Soft, non-tender. No signs of distention. No rebound, no guarding, and no masses palpated. Bowel sounds are normal. EXTREMITIES: FROM in all major joints, no edema, no cyanosis or clubbing. NEURO: Alert and oriented x 3. No acute neurological deficits. Speech is normal and follows commands. SKIN: Dry and warm. Triage Information Reviewed: Yes Vital Signs On Initial Exam: Initial Vitals Temp Pulse Resp BP Pulse Ox 97.9 F 90 22 122/55 98 02/19/19 14:03 02/19/19 14:03 02/19/19 14:03 02/19/19 14:03 02/19/19 14:03 Vital Signs Reviewed: Yes - Nidhi Coma Scale Best Eye Response: 4 - Spontaneous Best Motor Response: 6 - Obeys Commands Best Verbal Response: 5 - Oriented Coma Scale Total: 15 Procedures - Sedation Patient Received Moderate/Deep Sedation with Procedure: No Diagnostics - Vital Signs Vital Signs Temp Pulse Resp BP Pulse Ox 02/19/19 14:03 97.9 F 90 22 122/55 98 - Laboratory Result Diagrams: 02/19/19 14:23 02/19/19 14:23 Lab Statement: Any lab studies that have been ordered have been reviewed, and results considered in the medical decision making process. - Radiology Chest X-ray Radiology Interpretation Completed By: Radiologist Summary of Radiographic Findings: Chest X-ray IMPRESSION: NO ACTIVE CARDIOPULMONARY DISEASE IS NOTED. Reviewed by Dr. Chicas. - CT Brain CT CT Interpretation Completed By: Radiologist Summary of CT Findings: Brain CT IMPRESSION: No intracranial mass or hemorrhage is noted. Reviewed by Dr. Chicas. - EKG 14:41 Cardiac Rate: NL - 81 BPM EKG Rhythm: Sinus Rhythm ST Segment: Normal Ectopy: None Summary of EKG Findings: EKG at 14:41 shows normal sinus rhythm with 81 BPM, no ST elevations, normal axis, no STEMI. Reviewed and interpreted by Dr. Chicas. Complex Multi-Symp Course/Dx Assessment/Plan: Patient is an 88 y/o F presenting to [facility] via EMS for a chief complaint of altered mental status. Patient was sent to [facility] from [facility] after staff at [facility] noticed the patient had intermittent altered mental status. On route to the ED, patient was given albuterol for wheezing. Patient denies cough, fever, urinary burning, headache, chest pain, shortness of breath , or vision changes. She was diagnosed with pneumonia 5 days ago and was placed on antibiotics. PMHx is significant for diabetes mellitus, hypercholesterolemia , and hypertension. In the ED course the patient was alert oriented 3 and she is a poor historian. Patient has no complaints. Blood thinners/was of the wishes of 14, hemoglobin 10.2, hematocrit 31, platelets at 336. Sodium 130, potassium 5.2, BUN 44, creatinine 1.63, glucose 398, increased LFTs, and troponin is normal. I believe the patient has dehydration therefore the BUN and creatinine is elevated. Urinalysis is negative for UTI and the sample is contaminated. Therefore we'll send urine for cultures to rule out a UTI. Head CT shows no acute pathology. Chest x-ray shows no pneumonia. The patient continues to be asymptomatic. She has no complaints. She continues to be alert and oriented 3. Therefore I discussed my findings and test results with the patient and patient's family members and she is comfortable going back to the residential and to follow with her primary care physician. Patient is hemodynamically stable alert and oriented 3. - Diagnoses Provider Diagnoses: AMS (altered mental status), Hyperglycemia, CKD (chronic kidney disease), Dehydration Discharge ED - Sign-Out/Discharge Documenting (check all that apply): Patient Departure - Discharge - Discharge Plan Condition: Stable Disposition: HOME Patient Education Materials: Diabetic Hyperglycemia (ED) Referrals: Justin Quiles MD [Primary Care Provider] - Additional Instructions: FOLLOW UP WITH YOUR PRIMARY CARE PROVIDER WITHIN 3 DAYS. RETURN TO THE EMERGENCY DEPARTMENT FOR ANY WORSENING OR NEW SYMPTOMS. - Billing Disposition and Condition Condition: STABLE Disposition: Home - Attestation Statements Document Initiated by Lawanda: Yes Documenting Scribe: Lois Hu Provider For Whom Lawanda is Documenting (Include Credential): Tobias Chicas MD Scribe Attestation: ILois, scribed for Tobias Chicas MD on 02/19/19 at 1824. Scribe Documentation Reviewed: Yes Provider Attestation: The documentation as recorded by the Lois kaur accurately reflects the service I personally performed and the decisions made by me, Tobias Chicas MD Status of Scribe Document: Viewed
[2019-02-19 14:49] LABS: ALT 72 U/L (7-52); AST 57 U/L (13-39); Albumin 2.9 g/dL (3.2-5.2); Albumin/Globulin Ratio 0.8 (1-3); Alkaline Phosphatase 74 U/L (34-104); Anion Gap 10 mmol/L (2-11); Blood Urea Nitrogen 44 mg/dL (6-24); CO2 Carbon Dioxide 19 mmol/L (22-32); Calcium 8.4 mg/dL (8.6-10.3); Chloride 101 mmol/L (101-111); Creatine Kinase 15 U/L (10-223); EGFR African American 36.2 (>60); EGFR Non-African American 29.9 (>60); Globulin 3.6 g/dL (2-4); Glucose 398 mg/dL (70-100); Magnesium 2.1 mg/dL (1.9-2.7); Potassium 5.2 mmol/L (3.5-5.0); Sodium 130 mmol/L (135-145); Total Protein 6.5 g/dL (6.4-8.9)
[2019-02-19 14:51] LABS: Troponin I 0.01 ng/mL (<0.03)
[2019-02-19 15:00] LABS: Acetaminophen < 15 mcg/mL; Alcohol < 10 mg/dL (<10); Salicylate < 2.50 mg/dL (<30)
[2019-02-19 15:15] LABS: ABS Basophils 0.1 10^3/ul (0-0.2); ABS Monocytes 0.8 10^3/ul (0-0.8); ABS Neutrophils 12.1 10^3/ul (1.5-7.7); Eosinophil % 0.1 %; Lymphocyte % 7.1 %; TSH (Thyroid Stimulating Horm) 0.05 mcIU/mL (0.34-5.60)
[2019-02-19] MEDS ORDERED: NS 0.9% 1000 ML** 1,000 ML IV ONE (15:39)
[2019-02-19 15:47] LABS: Urine Appearance Clear; Urine Bilirubin Negative (Negative); Urine Blood 1+ (Negative); Urine Color Yellow; Urine Glucose 3+(>=500 mg/dL) (Negative); Urine Ketones Negative (Negative); Urine Nitrite Negative (Negative); Urine Protein Negative (Negative); Urine Urobilinogen Negative (Negative)
[2019-02-19 15:56] LABS: Urine Bacteria Absent (Absent); Urine Red Blood Cell 1+(3-5/hpf) (Absent); Urine Squamous Epithelial Cell Present (Absent); Urine Transitional Epithelial Present (Absent); Urine White Blood Cell 3+(>20/hpf) (Absent)
[2019-02-19] MEDS ORDERED: Insulin REGULAR(*) 1 UNITS UNIT IV PUSH ONE (16:46)
[2019-02-19 18:26] VITALS: BP 124/61
== END 2019-02-19 18:25 | disposition home or self-care (01) ==
LOC: ED 13:59
DX: E11.22 Type 2 diabetes mellitus with diabetic chronic kidney disease (principal); I12.9 Hypertensive chronic kidney disease with stage 1 through stage 4 chronic kidney disease, or unspecified chronic kidney disease; N18.9 Chronic kidney disease, unspecified; Z79.4 Long term (current) use of insulin; Z79.84 Long term (current) use of oral hypoglycemic drugs; R41.82 Altered mental status, unspecified; E86.0 Dehydration; E78.00 Pure hypercholesterolemia, unspecified; F03.90 Unspecified dementia, unspecified severity, without behavioral disturbance, psychotic disturbance, mood disturbance, and anxiety; F41.9 Anxiety disorder, unspecified; Z88.1 Allergy status to other antibiotic agents; Z88.2 Allergy status to sulfonamides; Z88.8 Allergy status to other drugs, medicaments and biological substances; Z87.891 Personal history of nicotine dependence
CPT/HCPCS: 36415; 70450; 71045; 80053; 80320; 80329; 81003; 81015; 82140; 82550; 83605; 83735; 84443; 84484; 85025; 87086; 93005; 96361; 96374; 99284; G0480

== ENCOUNTER 2020-04-13 19:26 | Inpatient (IN) ==
[2020-04-13] MEDS: NS 0.9% 1000 ml BAG 1,000 ML IV ONE ×2 (20:04→20:15)
[2020-04-13 20:48] LABS: ABS Lymphocytes 0.6 10^3/ul (1.0-4.8); ABS Monocytes 1.2 10^3/ul (0-0.8); ABS Neutrophils 9.5 10^3/ul (1.5-7.7); Hematocrit 39 % (35-47); Hemoglobin 12.9 g/dL (12.0-16.0); Lymphocyte % 5.6 %; Mean Corpuscular HGB Conc 33 g/dL (31-36); Mean Corpuscular Hemoglobin 31 pg (27-31); Mean Corpuscular Volume 93 fL (80-97); Mean Platelet Volume 8.6 fL (7.4-10.4); Platelet Count 157 10^3/uL (150-450); Red Blood Count 4.17 10^6 /uL (3.70-4.87); Red Cell Distribution Width 15 % (10-15); White Blood Count 11.4 10^3/uL (3.5-10.8)
[2020-04-13 20:53] LABS: INR 1.12 (0.82-1.09)
[2020-04-13 21:06] LABS: ALT 27 U/L (7-52); AST 30 U/L (13-39); Albumin 3.1 g/dL (3.2-5.2); Albumin/Globulin Ratio 0.8 (1-3); Alkaline Phosphatase 69 U/L (34-104); Anion Gap 10 mmol/L (2-11); BUN/Creatinine Ratio 27.2 (8-20); Blood Urea Nitrogen 74 mg/dL (6-24); C Reactive Protein 305.42 mg/L (<8.01); CO2 Carbon Dioxide 23 mmol/L (22-32); Calcium 8.7 mg/dL (8.6-10.3); Chloride 110 mmol/L (101-111); EGFR Non-African American 16.5 (>60); Globulin 3.8 g/dL (2-4); Glucose 131 mg/dL (70-100); Potassium 4.8 mmol/L (3.5-5.0); Sodium 143 mmol/L (135-145); Total Protein 6.9 g/dL (6.4-8.9)
[2020-04-13 21:15] LABS: Influenza A Molecular Negative (Negative); Influenza B Molecular Negative (Negative)
[2020-04-13 21:24] LABS: Urine Appearance Cloudy; Urine Bilirubin Negative (Negative); Urine Blood 1+ (Negative); Urine Color Yellow; Urine Glucose 1+(50 mg/dL) (Negative); Urine Ketones Negative (Negative); Urine Nitrite Negative (Negative); Urine Protein 3+(>=500 mg/dL) (Negative); Urine Specific Gravity 1.014 (1.010-1.030); Urine Urobilinogen Negative (Negative)
[2020-04-13 21:27] LABS: Urine Bacteria 3+ (Absent); Urine Red Blood Cell 1+(3-5/hpf) (Absent); Urine White Blood Cell 3+(>20/hpf) (Absent)
[2020-04-13] MEDS ORDERED: cefTRIAXone 2 GM ADDV.VIAL 2 GM in NS 0.9% 100 ml BAG 100 ML IVPB ONE (21:49)
[2020-04-13] MEDS ORDERED: Dextrose 50% Syringe 50 ml 25 GM/50 ML SYRINGE IV PUSH PRN (23:19)
[2020-04-14 01:36] LABS: Troponin I 0.14 ng/mL (<0.03)
[2020-04-14] MEDS: NS 0.9% 1000 ml BAG 1,000 ML IV SCH ×2 (03:16→17:11)
[2020-04-14 05:30] LABS: CO2 Carbon Dioxide 16 mmol/L (22-32); Sodium 143 mmol/L (135-145)
[2020-04-14 05:32] LABS: Anion Gap 12 mmol/L (2-11); Chloride 115 mmol/L (101-111)
[2020-04-14 05:35] LABS: BUN/Creatinine Ratio 29.8 (8-20); Blood Urea Nitrogen 77 mg/dL (6-24); EGFR African American 21.3 (>60); EGFR Non-African American 17.6 (>60); Glucose 141 mg/dL (70-100)
[2020-04-14 05:59] LABS: ABS Lymphocytes 0.9 10^3/ul (1.0-4.8); ABS Monocytes 1.8 10^3/ul (0-0.8); ABS Neutrophils 9.7 10^3/ul (1.5-7.7); Hematocrit 39 % (35-47); Hemoglobin 12.7 g/dL (12.0-16.0); Lymphocyte % 7.2 %; Mean Corpuscular HGB Conc 32 g/dL (31-36); Mean Corpuscular Hemoglobin 31 pg (27-31); Mean Corpuscular Volume 96 fL (80-97); Nucleated Red Blood Cells % 0.1; Platelet Count 110 10^3/uL (150-450); Red Cell Distribution Width 16 % (10-15); White Blood Count 13.8 10^3/uL (3.5-10.8)
[2020-04-14] MEDS ORDERED: Heparin 5000 UNITS/ML 1 mL VIAL SUBCUT SCH (06:00)
[2020-04-14 06:48] LABS: Troponin I 0.21 ng/mL (<0.03)
[2020-04-14] MEDS ORDERED: Enoxaparin 40 MG/0.4 ML SYR SUBCUT SCH (08:00)
[2020-04-14] MEDS: SPIRIVA Respimat (tiotropium) 2.5 mcg/inh Inhaler INH SCH (08:07)
[2020-04-14] MEDS: Enoxaparin 30 MG/0.3 ML SYR SUBCUT SCH (08:57)
[2020-04-14 13:00] LABS: Troponin I 0.14 ng/mL (<0.03)
[2020-04-14] MEDS ORDERED: Albuterol HFA INHALER 8 gm MDI INH PRN (14:52)
[2020-04-14] MEDS: methylPREDNISolone SOD 40 mg/ml 1 ml VIAL IV SCH (15:01)
[2020-04-14] MEDS: cefTRIAXone 1 gm/50 mL NS BAG 1 GM/50 ML BAG IVPB SCH (20:22)
[2020-04-15] MEDS: methylPREDNISolone SOD 40 mg/ml 1 ml VIAL IV SCH ×2 (02:56→14:12)
[2020-04-15] MEDS: SPIRIVA Respimat (tiotropium) 2.5 mcg/inh Inhaler INH SCH (07:22)
[2020-04-15 07:25] LABS: Hematocrit 35 % (35-47); Hemoglobin 11.5 g/dL (12.0-16.0); Mean Corpuscular HGB Conc 33 g/dL (31-36); Mean Corpuscular Hemoglobin 31 pg (27-31); Mean Corpuscular Volume 93 fL (80-97); Mean Platelet Volume 8.8 fL (7.4-10.4); Platelet Count 159 10^3/uL (150-450); Red Blood Count 3.74 10^6 /uL (3.70-4.87); Red Cell Distribution Width 16 % (10-15); White Blood Count 9.6 10^3/uL (3.5-10.8)
[2020-04-15 07:41] LABS: BUN/Creatinine Ratio 45.1 (8-20); Calcium 8.1 mg/dL (8.6-10.3); EGFR African American 27.6 (>60); EGFR Non-African American 22.8 (>60)
[2020-04-15 08:23] LABS: ABS Lymphocytes 0.6 10^3/ul (1.0-4.8); ABS Monocytes 0.3 10^3/ul (0-0.8); ABS Neutrophils 8.6 10^3/ul (1.5-7.7); Lymphocyte % 6.2 %
[2020-04-15] MEDS: Enoxaparin 30 MG/0.3 ML SYR SUBCUT SCH (08:30)
[2020-04-15] MEDS ORDERED: D5W 1000 ml BAG 1,000 ML IV SCH (09:00)
[2020-04-15] MEDS ORDERED: Insulin GLARGINE 100 un/ml 10 ml VIAL SUBCUT SCH (12:00)
[2020-04-15 12:37] LABS: Calcium 8.3 mg/dL (8.6-10.3); EGFR African American 28.2 (>60); EGFR Non-African American 23.3 (>60); Potassium 3.7 mmol/L (3.5-5.0)
[2020-04-15] MEDS: Mometasone/Formoter 200/5 MDI INH SCH ×2 (13:22→19:36)
[2020-04-15] MEDS ORDERED: Insulin GLARGINE 100 un/ml 10 ml VIAL SUBCUT ONE (14:45)
[2020-04-15] MEDS ORDERED: Lorazepam PYXIS KEY PRN (14:48)
[2020-04-15] MEDS ORDERED: NS 0.45% 1000 ml BAG 1,000 ML IV SCH (15:00)
[2020-04-15] MEDS: LORazepam 2 mg VIAL 1 ml IV PUSH PRN (15:02)
[2020-04-15 18:14] LABS: Glucose Confirmatory 419 mg/dL (70-100)
[2020-04-15 21:17] LABS: Glucose Confirmatory 577 mg/dL (70-100)
[2020-04-15] MEDS: cefTRIAXone 1 gm/50 mL NS BAG 1 GM/50 ML BAG IVPB SCH (22:19)
[2020-04-16] MEDS: LORazepam 2 mg VIAL 1 ml IV PUSH PRN (02:51)
[2020-04-16] MEDS ORDERED: Albuterol 2.5mg/3 ml (0.083%) NEB.SOLN INH ONE (04:04)
[2020-04-16] MEDS ORDERED: Albuterol 2.5mg/3 ml (0.083%) NEB.SOLN INH PRN (04:06)
[2020-04-16] MEDS: Mometasone/Formoter 200/5 MDI INH SCH ×2 (08:04→19:06)
[2020-04-16] MEDS: SPIRIVA Respimat (tiotropium) 2.5 mcg/inh Inhaler INH SCH (08:05)
[2020-04-16] MEDS: Enoxaparin 30 MG/0.3 ML SYR SUBCUT SCH (08:49)
[2020-04-16] MEDS: methylPREDNISolone SOD 40 mg/ml 1 ml VIAL IV SCH (08:51)
[2020-04-16 08:55] LABS: BUN/Creatinine Ratio 52.8 (8-20); Calcium 8.1 mg/dL (8.6-10.3); Potassium 3.8 mmol/L (3.5-5.0)
[2020-04-16] MEDS ORDERED: Insulin GLARGINE 100 un/ml 10 ml VIAL SUBCUT SCH (09:00)
[2020-04-16] MEDS ORDERED: Insulin GLARGINE 100 un/ml 10 ml VIAL SUBCUT ONE (10:37)
[2020-04-16 12:33] LABS: C Reactive Protein 182.28 mg/L (<8.01)
[2020-04-16] MEDS: cefTRIAXone 2 GM ADDV.VIAL 2 GM in NS 0.9% 100 ml BAG 100 ML IV SCH (22:05)
[2020-04-16 22:45] LABS: Glucose Confirmatory 550 mg/dL (70-100)
[2020-04-17 07:04] LABS: Hematocrit 33 % (35-47); Hemoglobin 10.9 g/dL (12.0-16.0); Mean Corpuscular HGB Conc 33 g/dL (31-36); Mean Corpuscular Hemoglobin 30 pg (27-31); Mean Corpuscular Volume 92 fL (80-97); Mean Platelet Volume 8.4 fL (7.4-10.4); Platelet Count 201 10^3/uL (150-450); Red Blood Count 3.59 10^6 /uL (3.70-4.87); Red Cell Distribution Width 16 % (10-15); White Blood Count 14.5 10^3/uL (3.5-10.8)
[2020-04-17 07:33] LABS: BUN/Creatinine Ratio 50.8 (8-20); Calcium 8.4 mg/dL (8.6-10.3); Potassium 4.3 mmol/L (3.5-5.0)
[2020-04-17 07:42] LABS: ABS Monocytes 1.2 10^3/ul (0-0.8); ABS Neutrophils 12.3 10^3/ul (1.5-7.7); Lymphocyte % 6.6 %
[2020-04-17] MEDS: methylPREDNISolone SOD 40 mg/ml 1 ml VIAL IV SCH (08:29)
[2020-04-17] MEDS: Insulin GLARGINE 100 un/ml 10 ml VIAL SUBCUT SCH (08:32)
[2020-04-17] MEDS: Enoxaparin 30 MG/0.3 ML SYR SUBCUT SCH (08:32)
[2020-04-17] MEDS: Mometasone/Formoter 200/5 MDI INH SCH ×2 (08:40→19:32)
[2020-04-17] MEDS: SPIRIVA Respimat (tiotropium) 2.5 mcg/inh Inhaler INH SCH (08:40)
[2020-04-17] MEDS ORDERED: Dextrose 50% Syringe 50 ml 25 GM/50 ML SYRINGE IV PUSH PRN (10:58)
[2020-04-17] MEDS: NS 0.45% 1000 ml BAG 1,000 ML IV SCH (12:17)
[2020-04-17] MEDS: cefTRIAXone 2 GM ADDV.VIAL 2 GM in NS 0.9% 100 ml BAG 100 ML IV SCH (20:30)
[2020-04-17 20:47] LABS: Glucose Confirmatory 528 mg/dL (70-100)
[2020-04-17] MEDS: Senna TAB 8.6 mg TAB PO PRN (21:46)
[2020-04-17] MEDS: Magnesium Hydroxide LIQ 30 ML UDC PO PRN (21:46)
[2020-04-18 05:47] LABS: Hematocrit 32 % (35-47); Hemoglobin 10.7 g/dL (12.0-16.0); Mean Corpuscular HGB Conc 34 g/dL (31-36); Mean Corpuscular Hemoglobin 31 pg (27-31); Mean Corpuscular Volume 91 fL (80-97); Mean Platelet Volume 8.3 fL (7.4-10.4); Platelet Count 247 10^3/uL (150-450); Red Blood Count 3.49 10^6 /uL (3.70-4.87); Red Cell Distribution Width 16 % (10-15); White Blood Count 19.2 10^3/uL (3.5-10.8)
[2020-04-18 06:04] LABS: BUN/Creatinine Ratio 56.5 (8-20); EGFR African American 36.6 (>60); EGFR Non-African American 30.3 (>60); Potassium 4.7 mmol/L (3.5-5.0)
[2020-04-18 06:11] LABS: ABS Lymphocytes 1.5 10^3/ul (1.0-4.8); ABS Monocytes 1.2 10^3/ul (0-0.8); ABS Neutrophils 16.5 10^3/ul (1.5-7.7); ABS Nucleated RBC 0.1 10^3/ul; Nucleated Red Blood Cells % 0.2
[2020-04-18] MEDS: SPIRIVA Respimat (tiotropium) 2.5 mcg/inh Inhaler INH SCH (08:46)
[2020-04-18] MEDS: Mometasone/Formoter 200/5 MDI INH SCH ×2 (08:46→21:05)
[2020-04-18] MEDS: Enoxaparin 30 MG/0.3 ML SYR SUBCUT SCH (10:27)
[2020-04-18] MEDS: Polyethylene Glycol 3350 17 GM PACKET PO SCH (10:27)
[2020-04-18] MEDS: Insulin GLARGINE 100 un/ml 10 ml VIAL SUBCUT SCH ×3 (10:28→22:58)
[2020-04-18] MEDS: NS 0.45% 1000 ml BAG 1,000 ML IV SCH (10:31)
[2020-04-18 19:25] LABS: C Reactive Protein 71.28 mg/L (<8.01)
[2020-04-18] MEDS: Magnesium Hydroxide LIQ 30 ML UDC PO PRN ×2 (20:23→21:04)
[2020-04-18] MEDS: Senna TAB 8.6 mg TAB PO PRN (20:23)
[2020-04-18] MEDS: cefTRIAXone 2 GM ADDV.VIAL 2 GM in NS 0.9% 100 ml BAG 100 ML IV SCH (20:32)
[2020-04-19] MEDS: Senna TAB 8.6 mg TAB PO PRN (00:13)
[2020-04-19 05:10] LABS: Hematocrit 31 % (35-47); Hemoglobin 10.1 g/dL (12.0-16.0); Mean Corpuscular HGB Conc 33 g/dL (31-36); Mean Corpuscular Hemoglobin 30 pg (27-31); Mean Corpuscular Volume 90 fL (80-97); Platelet Count 277 10^3/uL (150-450); Red Blood Count 3.42 10^6 /uL (3.70-4.87); Red Cell Distribution Width 16 % (10-15); White Blood Count 26.2 10^3/uL (3.5-10.8)
[2020-04-19 05:27] LABS: BUN/Creatinine Ratio 56.2 (8-20); Calcium 7.6 mg/dL (8.6-10.3); EGFR African American 44.1 (>60); EGFR Non-African American 36.5 (>60); Potassium 4.6 mmol/L (3.5-5.0)
[2020-04-19 06:28] LABS: ABS Basophils 0.1 10^3/ul (0-0.2); ABS Lymphocytes 1.3 10^3/ul (1.0-4.8); ABS Neutrophils 23.8 10^3/ul (1.5-7.7)
[2020-04-19] MEDS: Mometasone/Formoter 200/5 MDI INH SCH ×2 (07:50→19:55)
[2020-04-19] MEDS: SPIRIVA Respimat (tiotropium) 2.5 mcg/inh Inhaler INH SCH (07:54)
[2020-04-19] MEDS: Enoxaparin 30 MG/0.3 ML SYR SUBCUT SCH (09:50)
[2020-04-19] MEDS: Polyethylene Glycol 3350 17 GM PACKET PO SCH (09:50)
[2020-04-19] MEDS: Insulin GLARGINE 100 un/ml 10 ml VIAL SUBCUT SCH ×2 (10:01→22:30)
[2020-04-19] MEDS ORDERED: NS 0.9% 1000 ml BAG 1,000 ML IV ONE (19:08)
[2020-04-19 19:13] LABS: Hematocrit 32 % (35-47); Hemoglobin 10.6 g/dL (12.0-16.0); Mean Corpuscular HGB Conc 33 g/dL (31-36); Mean Corpuscular Hemoglobin 30 pg (27-31); Mean Corpuscular Volume 92 fL (80-97); Mean Platelet Volume 7.9 fL (7.4-10.4); Platelet Count 290 10^3/uL (150-450); Red Cell Distribution Width 16 % (10-15)
[2020-04-19 19:19] LABS: ABS Basophils 0.1 10^3/ul (0-0.2); ABS Neutrophils 27.9 10^3/ul (1.5-7.7); Lymphocyte % 3.3 %
[2020-04-19 19:27] LABS: INR 1.31 (0.82-1.09)
[2020-04-19 19:44] LABS: ALT 24 U/L (7-52); AST 15 U/L (13-39); Activated Partial Thrombo Time 27.7 seconds (26.0-38.0); Albumin 2.3 g/dL (3.2-5.2); Albumin/Globulin Ratio 0.6 (1-3); Alkaline Phosphatase 57 U/L (34-104); BUN/Creatinine Ratio 46.2 (8-20); Blood Urea Nitrogen 66 mg/dL (6-24); CO2 Carbon Dioxide 22 mmol/L (22-32); Calcium 7.8 mg/dL (8.6-10.3); EGFR Non-African American 34.7 (>60); Globulin 3.8 g/dL (2-4); Glucose 171 mg/dL (70-100); Magnesium 2.8 mg/dL (1.9-2.7); Potassium 4.2 mmol/L (3.5-5.0); Total Protein 6.1 g/dL (6.4-8.9)
[2020-04-19 19:55] LABS: Anion Gap 8 mmol/L (2-11); Chloride 118 mmol/L (101-111); Sodium 148 mmol/L (135-145); Troponin I 0.07 ng/mL (<0.03)
[2020-04-19 21:28] LABS: Cholesterol 115 mg/dL; Triglycerides 192 mg/dL
[2020-04-19 22:27] LABS: HDL Cholesterol 22.3 mg/dL; LDL Cholesterol 54 mg/dL
[2020-04-19] MEDS: cefTRIAXone 2 GM ADDV.VIAL 2 GM in NS 0.9% 100 ml BAG 100 ML IV SCH (22:30)
[2020-04-19 23:05] LABS: Troponin I 0.07 ng/mL (<0.03)
[2020-04-20] MEDS: NS 0.45% 1000 ml BAG 1,000 ML IV SCH (01:29)
[2020-04-20 05:20] LABS: Hematocrit 29 % (35-47); Hemoglobin 9.8 g/dL (12.0-16.0); Mean Corpuscular HGB Conc 34 g/dL (31-36); Mean Corpuscular Hemoglobin 31 pg (27-31); Mean Corpuscular Volume 92 fL (80-97); Mean Platelet Volume 7.8 fL (7.4-10.4); Platelet Count 274 10^3/uL (150-450); Red Blood Count 3.16 10^6 /uL (3.70-4.87); Red Cell Distribution Width 16 % (10-15); White Blood Count 30.1 10^3/uL (3.5-10.8)
[2020-04-20 05:45] LABS: BUN/Creatinine Ratio 45.7 (8-20); Calcium 7.2 mg/dL (8.6-10.3); EGFR African American 48.2 (>60); EGFR Non-African American 39.8 (>60)
[2020-04-20 05:53] LABS: ABS Basophils 0.1 10^3/ul (0-0.2); ABS Lymphocytes 0.8 10^3/ul (1.0-4.8); ABS Monocytes 0.8 10^3/ul (0-0.8); ABS Neutrophils 28.4 10^3/ul (1.5-7.7); Lymphocyte % 2.6 %
[2020-04-20] MEDS: Insulin GLARGINE 100 un/ml 10 ml VIAL SUBCUT SCH ×2 (07:44→21:10)
[2020-04-20] MEDS: Enoxaparin 30 MG/0.3 ML SYR SUBCUT SCH (08:59)
[2020-04-20] MEDS: Polyethylene Glycol 3350 17 GM PACKET PO SCH (09:00)
[2020-04-20] MEDS: Senna TAB 8.6 mg TAB PO PRN (09:04)
[2020-04-20] MEDS: Mometasone/Formoter 200/5 MDI INH SCH ×2 (09:14→20:51)
[2020-04-20] MEDS: SPIRIVA Respimat (tiotropium) 2.5 mcg/inh Inhaler INH SCH (09:18)
[2020-04-20 10:04] LABS: C Reactive Protein 159.13 mg/L (<8.01)
[2020-04-20] MEDS ORDERED: LORazepam 2 mg VIAL 1 ml IV PUSH ONE (13:56)
[2020-04-20] MEDS ORDERED: Lorazepam PYXIS KEY PRN (13:56)
[2020-04-20 15:09] LABS: Urine Potassium Concentration 41.8 mmol/L
[2020-04-20] MEDS: cefTRIAXone 2 GM ADDV.VIAL 2 GM in NS 0.9% 100 ml BAG 100 ML IV SCH (21:19)
[2020-04-21 05:27] LABS: Hematocrit 30 % (35-47); Hemoglobin 9.8 g/dL (12.0-16.0); Mean Corpuscular HGB Conc 32 g/dL (31-36); Mean Corpuscular Hemoglobin 30 pg (27-31); Mean Corpuscular Volume 93 fL (80-97); Mean Platelet Volume 8.2 fL (7.4-10.4); Platelet Count 323 10^3/uL (150-450); Red Blood Count 3.28 10^6 /uL (3.70-4.87); Red Cell Distribution Width 16 % (10-15); White Blood Count 36.2 10^3/uL (3.5-10.8)
[2020-04-21 05:43] LABS: BUN/Creatinine Ratio 37.7 (8-20); Calcium 7.7 mg/dL (8.6-10.3); EGFR Non-African American 33.9 (>60); Potassium 4.2 mmol/L (3.5-5.0)
[2020-04-21 05:49] LABS: ABS Monocytes 1.1 10^3/ul (0-0.8); ABS Neutrophils 33.9 10^3/ul (1.5-7.7); Eosinophil % 0.1 %; Lymphocyte % 2.9 %
[2020-04-21] MEDS: SPIRIVA Respimat (tiotropium) 2.5 mcg/inh Inhaler INH SCH (08:46)
[2020-04-21] MEDS: Mometasone/Formoter 200/5 MDI INH SCH (08:46)
[2020-04-21] MEDS: Polyethylene Glycol 3350 17 GM PACKET PO SCH (08:53)
[2020-04-21] MEDS: Senna TAB 8.6 mg TAB PO PRN (08:53)
[2020-04-21] MEDS: Magnesium Hydroxide LIQ 30 ML UDC PO PRN (08:53)
[2020-04-21] MEDS: Enoxaparin 30 MG/0.3 ML SYR SUBCUT SCH (08:54)
[2020-04-21] MEDS: Insulin GLARGINE 100 un/ml 10 ml VIAL SUBCUT SCH (09:00)
[2020-04-21] MEDS ORDERED: D5W 500 ml BAG 500 ML IV SCH (10:00)
[2020-04-21] MEDS ORDERED: D5W 1000 ml BAG 500 ML IV SCH (11:00)
[2020-04-21 15:09] LABS: BUN/Creatinine Ratio 35.6 (8-20); Calcium 7.7 mg/dL (8.6-10.3); EGFR African American 40.1 (>60); EGFR Non-African American 33.1 (>60); Potassium 4.1 mmol/L (3.5-5.0)
[2020-04-21] MEDS ORDERED: Lorazepam PYXIS KEY PRN (16:15)
[2020-04-21] MEDS: Morphine ORAL CONCENTRATE 5 MG/0.25 ML ORAL.SYRIN SL PRN ×2 (16:54→21:00)
[2020-04-22] MEDS: Morphine ORAL CONCENTRATE 5 MG/0.25 ML ORAL.SYRIN SL PRN ×4 (00:43→12:28)
[2020-04-22] MEDS: LORazepam 2 mg VIAL 1 ml IV PUSH PRN ×2 (04:38→12:44)
[2020-04-22] MEDS: Morphine ORAL CONCENTRATE 5 MG/0.25 ML ORAL.SYRIN SL SCH ×2 (14:29→20:58)
[2020-04-23] MEDS: Atropine 1% (ORAL/SL) 15 ML BTL SL PRN ×5 (00:01→14:07)
[2020-04-23] MEDS: LORazepam 2 mg VIAL 1 ml IV PUSH PRN ×2 (01:54→12:46)
[2020-04-23] MEDS: Morphine 2 MG/ML SYRINGE IV PRN ×4 (04:10→12:12)
[2020-04-23] MEDS: Morphine ORAL CONCENTRATE 5 MG/0.25 ML ORAL.SYRIN SL SCH ×2 (05:53→14:05)
[2020-04-23 07:59] VITALS: BP 136/57
[2020-04-23] MEDS ORDERED: Lorazepam PYXIS KEY PRN (14:40)
[2020-04-23] MEDS: Morphine 2 MG/ML SYRINGE IV SCH ×2 (15:47→20:34)
[2020-04-23] MEDS: Glycopyrrolate IV 0.2 MG/ML 1 ML VIAL IV SLOW PU SCH ×2 (15:49→20:33)
[2020-04-23] MEDS: LORazepam 2 mg VIAL 1 ml IV PUSH SCH ×2 (18:27→22:11)
[2020-04-24] MEDS: Morphine 2 MG/ML SYRINGE IV SCH ×2 (00:17→03:54)
[2020-04-24] MEDS: LORazepam 2 mg VIAL 1 ml IV PUSH SCH ×2 (02:01→06:21)
[2020-04-24] MEDS: Glycopyrrolate IV 0.2 MG/ML 1 ML VIAL IV SLOW PU SCH (02:57)
== END 2020-04-24 05:45 | disposition expired | DRG 871 ==
LOC: ED 19:26 → SUATTDRO 23:15 → MED 23:15 → MEDTELE 04-17 01:24
PROVIDERS: ADMIT Hospitalist; ATTEND Internal Medicine